=== PATIENT | female | born 1940 | race Caucasian/White ===

== ENCOUNTER → 2016-10-29 | Outpatient (CLI) | payer OTHER | LOC: BHFA 09:15 | PROVIDERS: ATTEND Internal Medicine | DX: I10 Essential (primary) hypertension (principal); R60.9 Edema, unspecified ==

== ENCOUNTER → 2017-09-24 | Outpatient (CLI) | payer OTHER | LOC: FIMAGING 09:12 | PROVIDERS: ATTEND Internal Medicine | DX: Z12.31 Encounter for screening mammogram for malignant neoplasm of breast (principal); Z13.820 Encounter for screening for osteoporosis; M85.89 Other specified disorders of bone density and structure, multiple sites; E03.9 Hypothyroidism, unspecified; E78.2 Mixed hyperlipidemia; I10 Essential (primary) hypertension; Z79.899 Other long term (current) drug therapy | CPT/HCPCS: G0202 ==

== ENCOUNTER 2018-02-16 13:35 | Inpatient (IN) | payer OTHER ==
[2018-02-16] MEDS ORDERED: NS 1,000 ML IV ONE (14:56)
[2018-02-16 15:07] LABS: PLATELET COUNT 225 10^3/uL (150-400)
--- NOTE | 2018-02-16 15:28 | EDPHY ---
H & P Stated Complaint: abd pain Time Seen by Provider: 02/16/18 14:39 - Personal History Current Tetanus/Diphtheria Vaccine: Yes Current Tetanus Diphtheria and Acellular Pertussis (TDAP): Yes Tetanus Vaccine Date: 2011 - Medical/Surgical History Hx Asthma: Yes Hx Chronic Respiratory Disease: No Hx Diabetes: No Hx Cardiac Disease: Yes Hx Renal Disease: Yes Hx Cirrhosis: No Hx Alcoholism: No Hx HIV/AIDS: No Hx Splenectomy or Spleen Trauma: No Other PMH: craniectomy, rib fx, liver laceration, hyperlipidemia,c7 radiculopathy with right arm weakness; neck fusion (Dr. Tran) tendon repair right hand; CVA. CABG - Social History Smoking Status: Never smoked Constitutional: Initial Vital Signs Temperature (C) 37 C 02/16/18 13:42 Heart Rate 68 02/16/18 13:42 Respiratory Rate 16 02/16/18 13:42 Blood Pressure 143/82 H 02/16/18 13:42 O2 Sat (%) 93 02/16/18 13:42 O2 Delivery Mode Room Air Allergies/Adverse Reactions: No Known Allergies Allergy (Verified 02/16/18 13:39) Home Medications: Medication Instructions Recorded Atorvastatin Calcium [Lipitor 40 40 mg PO DAILY #30 tab 03/07/14 mg (*)] Metoprolol Tartrate [Lopressor 25 12.5 mg PO BID #60 tab 03/07/14 mg (*)] Aspirin [Aspirin 325 mg (*)] 325 mg PO DAILY 07/05/16 Bimatoprost 0.01% [Lumigan 0.01% 1 drops EACHEYE HS 07/05/16 (*)] Cyanocobalamin [Vitamin B12 (*)] 1,000 mcg PO DAILY 07/05/16 Levothyroxine [Synthroid 50 mcg 50 mcg PO DAILY06 07/05/16 (*)] [place]-3 Fatty Acids [Fish Oil 1000 1,000 mg PO DAILY 07/05/16 mg (*)] Acetaminophen [Tylenol 325mg (*)] 650 mg PO Q4 PRN #0 tab 07/07/16 Advair 100/50 (*) 02/16/18 Medical Decision Making - Diagnostics Imaging: Discussed imaging studies w/ call box wirer Radiologist, I viewed and interpreted images myself ED Course/Re-evaluation: CHIEF COMPLAINT: Right upper quadrant abdominal pain HISTORY OF PRESENT ILLNESS: 77-year-old female who has had right upper quadrant abdominal pain for the last several days to week. She has also had some nausea without any significant vomiting. The pain has become fairly persistent. She was seen at [facility] for a fungal infection in the [facility] tested her liver function before starting her on an anti fungal medicine. He noticed there was elevation of the liver enzymes and subsequently discuss that with her PCP who sent her here to the emergency department. I have seen those labs and there is elevation of the AST, ALT, alkaline phosphatase, and bilirubin. Patient does endorse persistent right upper quadrant pain and nausea at this time. REVIEW OF SYSTEMS: A 10 point review of systems was performed and is negative with the exception of the elements mentioned in the history of present illness. PHYSICAL EXAM: HR, BP, O2 Sat, RR. Temp noted General Appearance: Alert, well hydrated, appropriate, and non-toxic appearing. Head: Atraumatic without scalp tenderness or obvious injury Eyes: Pupils equal, round, reactive to light and accommodation, EOMI, no trauma , no injection. Ears: Clear bilaterally, no perforation, normal landmarks Nose: Atraumatic, no rhinorrhea, clear. Throat: There is no erythema or exudates, no lesions, normal tonsils, mucus membranes moist. Neck: Supple, 2+ carotid upstroke, nontender, no lymphadenopathy. Respiratory: No retractions, no distress, no wheezes, and no accessory muscle use. Lungs are clear to auscultation bilaterally. Cardiovascular: Regular rate and rhythm, no murmurs, rubs, or gallops. Bilateral carotid, radial, dorsalis pedis, and posterior tibial pulses intact. Good capillary refill all extremities. Gastrointestinal: Positive De Dios sign, otherwise, Abdomen is soft, nontender, non-distended, no masses, no rebound, no guarding, no peritoneal signs. Musculoskeletal: Normal active ROM of all extremities, atraumatic. Neurological: Alert, appropriate, and interactive. The patient has normal DTRs and non-focal cranial nerves, motor, sensory, and cerebellar exam. Skin: No rashes, good turgor, no nodules on palpation. Past medical history: Some problem with her right kidney that she cannot be more specific about Past surgical history: Surgery on that right kidney that she cannot be more specific about Family history: Noncontributory Social history: Retired, does not abuse tobacco drugs or alcohol, and p.o. Since 10:00 a.m. DIAGNOSTICS/PROCEDURES/CRITICAL CARE TIME: Study: Ultrasound of the: Right upper quadrant gallbladder Indication: Elevated liver enzymes and positive De Dios sign Results: US scan of the right upper quadrant was obtained. The results of the study are dilated common bile duct at 9mm (compared to 3mm last year) and thickened gallbladder wall, consistent with acute cholecystitis. The study was read by the radiologist, Dr. Richard. I viewed the images myself on the PACS system. DIFFERENTIAL DIAGNOSIS: The differential diagnosis for the patient's abdominal pain included but was not limited to ovarian cyst, pelvic inflammatory disease, ovarian torsion, urinary tract infection, ectopic , cholecystitis, and appendicitis. MEDICAL DECISION MAKING: This patient has positive De Dios sign and worsening liver enzymes comparing my labs today to her prior labs. She also has elevated alkaline phosphatase and bilirubin I expect her to have a ductal stone. She has a normal lipase. She does not want anything for pain or nausea at this time. She has been NPO since 10:00 a.m. She is receiving intravenous fluids. I will treat her with antibiotics once I confirm her diagnosis. She does not have a white blood cell count currently. She is not septic. The imaging shows dilated common bile duct at 9mm (compared to 3mm last year) and thickened gallbladder wall, consistent with acute cholecystitis. She has been given ceftriaxone and Flagyl. I spoke to Dr. Avila for admission and surgery. She will perform a cholecystectomy and an intraoperative cholangiogram to identify the location of the stone. I informed the patient of the results of her work up and she agrees to this course of action. - Data Points Laboratory Results: Laboratory Results 02/16/18 14:45 02/16/18 14:45 02/16/18 02/16/18 02/16/18 14:45 14:45 14:45 WBC 5.43 10^3/uL 10^3/uL (3.80-9.50) RBC 3.81 10^6/uL L 10^6/uL (4.18-5.33) Hgb 12.5 g/dL L g/dL (12.6-16.3) Hct 36.6 % L % (38.0-47.0) MCV 96.1 fL fL (81.5-99.8) MCH 32.8 pg pg (27.9-34.1) MCHC 34.2 g/dL g/dL (32.4-36.7) RDW 14.1 % % (11.5-15.2) Plt Count 225 10^3/uL 10^3/uL (150-400) MPV 9.6 fL fL (8.7-11.7) Neut % (Auto) 57.4 % % (39.3-74.2) Lymph % (Auto) 27.3 % % (15.0-45.0) [place] % (Auto) 12.7 % % (4.5-13.0) Eos % (Auto) 1.8 % % (0.6-7.6) Baso % (Auto) 0.4 % % (0.3-1.7) Nucleat RBC Rel Count 0.0 % % (0.0-0.2) Absolute Neuts (auto) 3.12 10^3/uL 10^3/uL (1.70-6.50) Absolute Lymphs (auto) 1.48 10^3/uL 10^3/uL (1.00-3.00) Absolute Monos (auto) 0.69 10^3/uL 10^3/uL (0.30-0.80) Absolute Eos (auto) 0.10 10^3/uL 10^3/uL (0.03-0.40) Absolute Basos (auto) 0.02 10^3/uL 10^3/uL (0.02-0.10) Absolute Nucleated RBC 0.00 10^3/uL 10^3/uL (0-0.01) Immature Gran % 0.4 % % (0.0-1.1) Immature Gran # 0.02 10^3/uL 10^3/uL (0.00-0.10) Sodium 144 mEq/L mEq/L (135-145) Potassium 3.8 mEq/L mEq/L (3.5-5.2) Chloride 108 mEq/L mEq/L (97-110) Carbon Dioxide 26 mEq/l mEq/l (22-31) Anion Gap 10 mEq/L mEq/L (8-16) BUN 10 mg/dL mg/dL (7-23) Creatinine 0.7 mg/dL mg/dL (0.6-1.0) Estimated GFR > 60 Glucose 107 mg/dL H mg/dL (70-100) Calcium 9.6 mg/dL mg/dL (8.5-10.4) Total Bilirubin 5.6 mg/dL H mg/dL (0.1-1.4) Conjugated Bilirubin 4.4 mg/dL H mg/dL (0.0-0.5) Unconjugated Bilirubin 1.2 mg/dL H mg/dL (0.0-1.1) AST 312 IU/L H IU/L (14-46) ALT 267 IU/L H IU/L (9-52) Alkaline Phosphatase 585 IU/L H IU/L (38-126) Total Protein 6.7 g/dL g/dL (6.3-8.2) Albumin 3.8 g/dL g/dL (3.5-5.0) Lipase 296 IU/L IU/L (23-300) Urine Color JILL Urine Appearance MODERATELY TURBID Urine pH 5.0 (5.0-7.5) Ur Specific [place] 1.024 (1.002-1.030) Urine Protein 1+ H (NEGATIVE) Urine Ketones TRACE H (NEGATIVE) Urine Blood 1+ H (NEGATIVE) Urine Nitrate NEGATIVE (NEGATIVE) Urine Bilirubin POSITIVE H (NEGATIVE) Urine Urobilinogen 4.0 EU H EU (0.2-1.0) Ur Leukocyte Esterase NEGATIVE (NEGATIVE) Urine RBC 1-3 /hpf /hpf (0-3) Urine WBC 25-50 /hpf H /hpf (0-3) Ur Epithelial Cells TRACE /lpf /lpf (NONE-1+) Calcium Oxalate Crystal PRESENT /hpf /hpf (NONE-1+) Urine Mucus 4+ /lpf H /lpf (NONE-1+) Urine Glucose 1+ H (NEGATIVE) Medications Given: Discontinued Medications Sodium Chloride (Ns) 1,000 mls @ 0 mls/hr IV EDNOW ONE; Wide Open PRN Reason: Protocol Stop: 02/16/18 14:57 Last Admin: 02/16/18 15:07 Dose: 1,000 mls Departure - Departure Disposition: [facility] Inpatient Acute Clinical Impression: Cholecystitis, Choledocholithiasis Condition: Fair Referrals: Magy Collins MD [Primary Care Provider] - As per Instructions Report Scribed for: Jerald Saucedo Report Scribed by: Katarina Olivarez Date of Report: 02/16/18 Time of Report: 16:04
[2018-02-16] MEDS ORDERED: ONDANSETRON 4 MG/2 ML VIAL IVP PRN ×2 (16:01→19:33)
[2018-02-16] MEDS ORDERED: LR 1,000 ML IV ONE (16:48)
--- NOTE | 2018-02-16 17:26 | GHP ---
[f rep st] HISTORY AND PHYSICAL DATE OF ADMISSION: 02/16/2018 CHIEF COMPLAINT: Choledocholithiasis and cholecystitis. HISTORY OF PRESENT ILLNESS: The patient is a 77-year-old woman who has had upper abdominal pain for 5-6 days. She has been seen by her primary care provider, her LFTs were rising, and so she was sent to the emergency room. She has complaints of light-colored stools, dark-colored urine, and jaundice. She has not been eating much recently. She denies fevers, chills, and pruritus. She had an ultras ound performed which showed choledocholithiasis, as well as cholecystitis. PAST MEDICAL HISTORY: Significant for coronary artery disease, history of pneumonia, history of a ce rebral artery aneurysm, hypertension, hyperlipidemia, hypothyroidism, and reactive airways disease. PAST SURGICAL HISTORY: CABG, brain aneurysm x2, neck fusion, right arm surgery, and kidney surgery i n the '70s. ALLERGIES: No known drug allergies. MEDICATIONS: Include atorvastatin, metoprolol, aspirin, Bimatoprost, vitamin B12, levothyroxine, ome ga-3, acetaminophen, and Advair. FAMILY HISTORY: Noncontributory. 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 She denies tobacco, alcoho l, or drug use. She does like to play [employer]. She has raised 7 children. PHYSICAL EXAMINATION: VITAL SIGNS: Reviewed. GENERAL: Pleasant, well-nourished, well-groomed woma n at visit with daughter. HEENT: Normocephalic. No gross hearing deficits. Mucous membranes moist . Pupils equal and round. She does have scleral icterus. LUNGS: Clear to auscultation bilaterally . No increased work of breathing. CARDIAC: Regular rate. No peripheral edema. ABDOMEN: She has a right scar that is subcostal. Her abdomen is soft and minimally tender. Bowel sounds are present. SKIN: Warm and dry. Slight jaundice. NEURO: Grossly intact. RESULTS REVIEWED: Her LFTs are elevated. Her imaging shows a dilated common bile duct and thickened gallbladder wall. IMPRESSION/PLAN: A 77-year-old with acute cholecystitis and choledocholithiasis. I will take her to the operating room for laparoscopic cholecystectomy with intraoperative cholangiogram. The risks an d benefits including, but not limited to, stroke, heart attack, , blood clots, infection, bleedi ng, damage to common bile duct, and need for additional procedures were all discussed. She had her q uestions answered to her satisfaction. She received Rocephin and Flagyl in the ER. I discussed the case with Dr. Saucedo. /[id number]/MODL
--- NOTE | 2018-02-16 17:27 | PDANEPAE ---
ANE History of Present Illness ACUTE CHOLELITHIASIS HERE FOR LAP MACI ANE Past Medical History - Cardiovascular History Hx Hypertension: No Hx Arrhythmias: No Hx Chest Pain: No Hx Coronary Artery / Peripheral Vascular Disease: Yes Hx CHF / Valvular Disease: No Hx Palpitations: No Cardiovascular History Comment: DYSLIPIDEMIA. CAD. CABG X2 FEBRUARY 2014 - Pulmonary History Hx COPD: No Hx Asthma/Reactive Airway Disease: Yes Hx Recent Upper Respiratory Infection: Yes Hx Oxygen in Use at Home: Yes O2 in Use at Home (L/minute): 2 Hx Sleep Apnea: No Pulmonary History Comment: ASTHMA- INHALER BID. OXYGEN AT NIGHT - Neurologic History Hx Cerebrovascular Accident: No Hx Seizures: No Hx Dementia: No - Endocrine History Hx Diabetes: No - Renal History Hx Renal Disorders: Yes Renal History Comment: HX. KIDNEY SURGERY R - Liver History Hx Hepatic Disorders: Yes Hepatic History Comment: LACERATED LIVER - Neurological & Psychiatric Hx Hx Neurological and Psychiatric Disorders: No Neurological / Psychiatric History Comment: ZOLOFT FOR DEPRESSION - Cancer History Hx Cancer: No - Congenital Disorder History Hx Congenital Disorders: No - GI History Hx Gastrointestinal Disorders: No - Other Health History Other Health History: NEG - Chronic Pain History Chronic Pain: No - Surgical History Prior Surgeries: CABG X2 FEBRUARY 2014. CRANIECTOMY - ANEURYSM 1996. RIB FX AND LAC LIVER. KIDNEY SURG 1976 ANE Review of Systems Review of Systems: - Exercise capacity Exercise capacity: >=4 METS METS (RN): 4 METS ANE Patient History - Allergies Allergies/Adverse Reactions: acetaminophen [From [place]] Allergy (Verified 02/16/18 17:15) hydrocodone [From [place]] Allergy (Verified 02/16/18 17:15) - Home Medications Home Medications: Aspirin [Aspirin 325 mg (*)] 325 mg PO DAILY 07/05/16 [Last Taken 1 Day Ago ~] Bimatoprost 0.01% [Lumigan 0.01% (*)] 1 drops EACHEYE HS 07/05/16 [Last Taken 1 Day Ago ~02/15/18] Cyanocobalamin [Vitamin B12 (*)] 1,000 mcg PO DAILY 07/05/16 [Last Taken 1 Day Ago ~02/15/18] Levothyroxine [Synthroid 50 mcg (*)] 50 mcg PO DAILY06 07/05/16 [Last Taken ] [place]-3 Fatty Acids [Fish Oil 1000 mg (*)] 1,000 mg PO DAILY 07/05/16 [Last Taken 1 Day Ago ~02/15/18] Advair 100/50 (*) 02/16/18 [Last Taken 02/16/18] Ibuprofen [Advil] 1 tab PO PRN 02/16/18 [Last Taken 02/16/18] - NPO status NPO Since - Liquids (Date): 02/16/18 NPO Since - Liquids (Time): 12:00 NPO Since - Solids (Date): 02/16/18 NPO Since - Solids (Time): 12:00 (light meal) - Anes Hx Anes Hx: no prior problems - Smoking Hx Smoking Status: Never smoked - Alcohol Use Alcohol Use: None - Family Anes Hx Family Anes Hx: none Family Hx Anesthesia Complications: NEG ANE Labs/Vital Signs - Labs Result Diagrams: 02/16/18 14:45 02/16/18 14:45 - Vital Signs Blood Pressure: 178/72 Heart Rate: 61 Respiratory Rate: 16 O2 Sat (%): 94 Height: 170.18 cm Weight: 86.183 kg ANE Physical Exam - Airway Neck exam: FROM Mallampati Score: Class 2 Mouth exam: normal dental/mouth exam - Pulmonary Pulmonary: no respiratory distress, clear to auscultation - Cardiovascular Cardiovascular: regular rate and rhythym, no murmur, rub, or gallop - ASA Status ASA Status: III ANE Anesthesia Plan Anesthesia Plan: general endotracheal anesthesia Regional Anesthesia: TAP block
[2018-02-16] MEDS ORDERED: IOTHALAMATE MEG (CONRAY) 50 ML VIAL IV ONE (17:29)
[2018-02-16] MEDS ORDERED: BUPIVACAINE 0.5% 30 ML SDV ONE (17:29)
[2018-02-16] MEDS ORDERED: PROPOFOL 200 MG/20 ML VIAL ONE (17:49)
[2018-02-16] MEDS ORDERED: fentaNYL 100 MCG/2 ML INJ ONE ×2 (17:49→19:02)
[2018-02-16] MEDS ORDERED: LIDOCAINE 2% 100 MG/5 ML SYR ONE (17:51)
[2018-02-16] MEDS ORDERED: DEXAMETHASONE 4 MG/ML VIAL ONE (18:24)
[2018-02-16] MEDS ORDERED: ONDANSETRON 4 MG/2 ML VIAL ONE ×2 (18:24→20:03)
[2018-02-16] MEDS ORDERED: fentaNYL 100 MCG/2 ML INJ IVP PRN (19:33)
[2018-02-16] MEDS ORDERED: NALOXONE HCL 0.4 MG/ML INJ IVP PRN (19:33)
[2018-02-16] MEDS ORDERED: ALBUTEROL 3 ML DEYVIAL IH PRN (19:33)
[2018-02-16] MEDS ORDERED: oxyCODONE IR 5 MG TAB PO PRN (19:33)
--- NOTE | 2018-02-16 19:35 | POSTANESTH ---
Post Anesthetic Evaluation Cardiovascular Status: Normal, Stable, Similar to Pre-Op Cond Respiratory Status: Normal, Stable, Similar to Pre-op Cond. Level of Consciousness/Mental Status: Can Participate in Eval, Alert and Oriented Pain Control: Adequate, Prn Tx Ordered Nausea/Vomiting Control: Adequate, Prn Tx Ordered Complications Possibly Related to Anesthesia: None Noted
[2018-02-16] MEDS ORDERED: LABETALOL HCL 5 MG/ML 20 ML MDV ONE (19:37)
--- NOTE | 2018-02-16 19:40 | POSTOPPROG ---
Post Op Note Date of Operation: 02/16/18 Surgeon: Jennifer Avila Anesthesiologist: brandon Anesthesia: GET(General Endotracheal) Pre-op Diagnosis: cholecystitis and choledocolithiasis Post-op Diagnosis: same Indication: 77 yo with ab pain, elevated LFTs Procedure: lap lorie attempt at IOC Findings: could not thread cholangiogram catheter Inf/Abcess present in the surg proc area at time of surgery?: Yes Depth: Organ Space EBL: Minimal Specimen(s): gb
[2018-02-16] MEDS ORDERED: LABETALOL HCL 5 MG/ML 20 ML MDV IVP ONE ×3 (19:44→20:30)
[2018-02-16] MEDS ORDERED: PROMETHAZINE HCL 25 MG/ML INJ ONE (20:18)
[2018-02-16] MEDS ORDERED: amLODIPine BESYLATE 5 MG TAB PO ONE (20:45)
[2018-02-16] MEDS ORDERED: PROMETHAZINE HCL 25 MG/ML INJ IV ONE (20:45)
--- NOTE | 2018-02-16 21:17 | GCON ---
[f rep st] CONSULTATION DATE OF CONSULTATION: 02/16/2018 SUBJECTIVE: The patient is a pleasant 77-year-old female with a history of coronary artery disease w ith bypass, as well as remote intracranial aneurysm status post coiling, presents to the [facility] with nausea, anorexia, abnormal LFTs, and she is now in the PACU following a laparoscopic cholecys tectomy. She was unable to have an intraoperative cholangiogram given persistent intraoperative hype rtension. I am now asked by Dr. Jennifer Avila to speak with the patient. When I arrived in the PACU, the patient's blood pressure was elevated to 190/70. It had been as high as 226/75. The patient denies chest pain or headache. She has some nausea. She has not had any fe gerry, chills, abdominal pain. Her pain is otherwise well-controlled. She denies history of heart failure symptoms as an outpatient. She lives independently. REVIEW OF SYSTEMS: Complete 10-point review of systems conducted. Negative, except as noted in the HPI. PAST MEDICAL HISTORY: 1. History of 2-vessel bypass. 2. Brain aneurysm, status post craniotomy. 3. Cervical fusion, right hand surgery, hypertension, choledocholithiasis. ALLERGIES: Hydrocodone and Tylenol. HOME MEDICATIONS: Metoprolol 12.5 twice daily, fish oil, levothyroxine, B12, Lumigan eye drops, ator vastatin, aspirin. She also takes Tylenol. SOCIAL HISTORY: No tobacco. No alcohol. Lives in [facility]. PHYSICAL EXAMINATION: VITAL SIGNS: Temperature 36.4, blood pressure 178/72, now 179/69, pulse 50s, breathing 16 times a minute, 94% on room air. GENERAL: Lying flat. HEENT: Sclerae anicteric. Sun pharynx clear. Mucous membranes moist. NECK: Supple without lymphadenopathy or JVD. LUNGS: Clear to auscultation bilaterally. HEART: S1, S2. There is a systolic murmur heard throughout the preco rdium. ABDOMEN: Soft. It is appropriately tender. LOWER EXTREMITIES: Without edema. Calves are nontender. SKIN: Without rash. NEUROLOGICAL: Exam is nonfocal. LABORATORY DATA: White count 5.4, hematocrit 36.6, platelets are 225,000. Sodium 144, potassium 3.8 , chloride 108, bicarb 26, BUN 10, creatinine 0.7, glucose 107, bilirubin is 5.6, predominantly conju gated. AST is 312, ALT is 267, alkaline phosphatase 585. UA is positive at 25-50 white cells. I discussed the case with Dr. Jennifer Avila. ASSESSMENT/PLAN: This is a 77-year-old female with choledocholithiasis and postoperative hypertensio n. 1. Hypertension. This is likely postoperative hypertension. They have been giving her labetalol in the emergency department. I have written for her to give 5 of Norvasc now, as well as an additional 10. We can follow her blood pressure. I will also write her for metoprolol as her medications have not yet been reconciled. She has no headache, no chest symptoms. We do not need to worry about pot ential anginal symptoms. She has done very well since her bypass. 2. Coronary artery disease. Continue her aspirin, atorvastatin and beta-arik when her medication s have been reconciled, and an aspirin is appropriate from a postoperative standpoint. 3. Prophylaxis. Recommend pharmacologic venous thromboembolism prophylaxis when felt appropriate by Surgery. Would recommend aspirin first. 4. Choledocholithiasis. The patient remains on antibiotics. It is not clear if operative removal w as successful, of the stone. I will defer this to Dr. Avila. 5. Pyuria. The patient has pyuria. This will be covered with ceftriaxone and metronidazole that arie is on. Thank you for this consultation. [facility] Medicine will follow. /[id number]/MODL
[2018-02-16] MEDS ORDERED: ENALAPRILAT DIHYDRATE 1.25 MG/ML VIAL ONE (21:25)
[2018-02-16] MEDS ORDERED: ENALAPRILAT DIHYDRATE 1.25 MG/ML VIAL IVP ONE (21:30)
[2018-02-16] MEDS: D5W 1/2 NS W/ 20 KCl/L 1,000 ML IV SCH (22:10)
[2018-02-16] MEDS: METOPROLOL TARTRATE 25 MG TAB PO SCH (22:10)
[2018-02-17 04:53] LABS: PLATELET COUNT 207 10^3/uL (150-400)
[2018-02-17] MEDS: METOPROLOL TARTRATE 25 MG TAB PO SCH ×2 (07:26→20:37)
[2018-02-17] MEDS: LEVOTHYROXINE 50 MCG TAB PO SCH (07:31)
[2018-02-17] MEDS: D5W 1/2 NS W/ 20 KCl/L 1,000 ML IV SCH (07:35)
--- NOTE | 2018-02-17 08:32 | SOAPPROG ---
SOAP Progress Note Assessment/Plan: Assessment/Plan: 77yo F POD#1 s/p lap lorie. Unable to perform IOC d/t intraop hypertension HTN - managed by hospitalists Pain significantly improved this am. Bilirubin trending down Will hold off on ERCP for now. Recheck labs tomorrow am. If pain returns/worsens , will consult GI today Advance to clear liquids S: "starving". pain controlled. No flatus yet. No nausea. O: Sitting upright in chair, NAD No increased WOB Hypoactive BS but present, softly distended. Incisions CDI Objective: Vital Signs Temp Pulse Resp BP Pulse Ox 36.6 C 66 18 183/68 H 93 02/17/18 06:42 02/17/18 06:42 02/17/18 06:42 02/17/18 06:42 02/17/18 06:42 Laboratory Results 02/17/18 04:35 02/16/18 02/17/18 02/18/18 05:59 05:59 05:59 Intake Total 4000 Output Total 10 Balance 3990 ICD10 Worksheet Patient Problems: Problems Problem Status Onset Cholecystitis Acute Choledocholithiasis Acute Ankle fracture, left Acute CAD (coronary artery disease) Acute Coronary arteriosclerosis in [place] artery Acute Dislocation of ankle, left, closed Acute HTN (hypertension) Acute Hypoxemia Acute Pneumonia Acute
[2018-02-17] MEDS: FLUTICASONE/SALMETER 250/50MCG DISKUS IH SCH ×2 (08:40→21:42)
[2018-02-17] MEDS ORDERED: CYANO/VITAMIN B12 1000 MCG TAB PO SCH (09:00)
[2018-02-17] MEDS: traMADol 50 MG TAB PO PRN ×2 (11:52→18:27)
--- NOTE | 2018-02-17 11:52 | PDMN ---
Medical Necessity Medical necessity: est los>2mn for cholecystitis and choledocholithiasis w/ elevated liver fx and dilated CBD; admit for lap lorie, ( no IOC r/t intraop htn ) monitor labs, GI consult if pain returns or worsens, hospitalist consult for HTN management; comorbid CAD, HTN, HLD, RAD, hx cerebral aneurysm; per order and H&P 02/16/18
--- NOTE | 2018-02-17 12:56 | ASMTCMCOM ---
CM Note CM Note Notes: Reviewed chart. Pt is s/p john melo. Met w/her to discuss dc plan. Pt lives at home w/friend, Juan. She reports she has very good family/friend support. No CM needs anticipated. Date Signed: 02/17/2018 12:56 PM Electronically Signed By:Tahmnia Gibson RN
--- NOTE | 2018-02-17 15:22 | HOSPPROG ---
Hospitalist Progress Note Assessment/Plan: 77 yo F with hx of CAD and HTN presenting with abdominal pain found to be 2/2 cholelithiasis/choledocholithiasis # cholelithiasis/choledocholithiasis: s/p lap lorie but unable to perform IOC due to HTN. SEems likely that the stone has passed on its own given improvement in pain and decrease in LFTs. Plan is to monitor overnight and if pain remains improved, LFTs continue to trend down suspect that no further intervention is needed. # HTN: patient with chronic htn and significantly elevated BP in the post operative setting likely related to same. Currently maintaining safe BP on home doses of metoprolol. # CAD: continued on asa, statin, BB # pyuria: asymptomatic, will not treat or w/u further at this time # hypothyroid: continue lt4 # dispo: IP , likely ready for dc in am if labs continue to improve Patient new to my care. Old records reviewed and summarized as above. Subjective: no significant overnight events, patient currently feeling better, eating/drinking/walking Objective: Vital Signs Temp Pulse Resp BP Pulse Ox 97.9 C H 58 L 16 137/48 H 95 02/17/18 10:48 02/17/18 10:48 02/17/18 10:48 02/17/18 10:48 02/17/18 10:48 Laboratory Results 02/17/18 04:35 02/16/18 02/17/18 02/18/18 05:59 05:59 05:59 Intake Total 4000 Output Total 10 Balance 3990 awake alert nad anicteric op clear rrr no mrg cta b soft nt nd no cce warm dry well perfused oriented appropriate ICD10 Worksheet Patient Problems: Problems Problem Status Onset Coronary arteriosclerosis in [place] artery Acute Hypoxemia Acute Pneumonia Acute Ankle fracture, left Acute Dislocation of ankle, left, closed Acute CAD (coronary artery disease) Acute HTN (hypertension) Acute Cholecystitis Acute Choledocholithiasis Acute
[2018-02-17] MEDS ORDERED: BIMATOPROST 0.01% 2.5 ML OPHT.BTL EACHEYE SCH (21:00)
[2018-02-17] MEDS ORDERED: ASPIRIN 325 MG TAB PO SCH (21:00)
[2018-02-17] MEDS ORDERED: ATORVASTATIN CALCIUM 40 MG TAB PO SCH (21:00)
[2018-02-18] MEDS: LEVOTHYROXINE 50 MCG TAB PO SCH (04:38)
[2018-02-18 07:30] VITALS: BP 149/56
--- NOTE | 2018-02-18 07:50 | SOAPPROG ---
SOAP Progress Note Assessment/Plan: Assessment: POD # 2 s/p lap lorie with attempt at IOC for choledocolithiasis Labs much improved today Can DC home [place] [facility]STANED[facility] instruction sheet Repeat labs in 1 week S: Feeling well O: Abdomen soft. Incisions cdi CTAB RRR Sitting up in bed playing [id number] Plan: 02/18/18 07:50 Objective: Vital Signs Temp Pulse Resp BP Pulse Ox 36.8 C 60 16 149/56 H 87 L 02/18/18 07:24 02/18/18 07:24 02/18/18 07:24 02/18/18 07:24 02/18/18 07:24 Laboratory Results 02/17/18 04:35 02/17/18 02/18/18 02/19/18 05:59 05:59 05:59 Intake Total 4000 200 Output Total 10 Balance 3990 200 ICD10 Worksheet Patient Problems: Problems Problem Status Onset Cholecystitis Acute Choledocholithiasis Acute Ankle fracture, left Acute CAD (coronary artery disease) Acute Coronary arteriosclerosis in [place] artery Acute Dislocation of ankle, left, closed Acute HTN (hypertension) Acute Hypoxemia Acute Pneumonia Acute
[2018-02-18] MEDS: METOPROLOL TARTRATE 25 MG TAB PO SCH (08:53)
[2018-02-18] MEDS: FLUTICASONE/SALMETER 250/50MCG DISKUS IH SCH (08:54)
[2018-02-18] MEDS: traMADol 50 MG TAB PO PRN (09:12)
--- NOTE | 2018-02-24 12:59 | GOP ---
[f rep st] OPERATIVE REPORT DATE OF OPERATION: 02/16/2018 SURGEON: Jennifer Avila MD ANESTHESIA: General. ANESTHESIOLOGIST: Dr. Agapito Mallory. PREOPERATIVE DIAGNOSIS: Cholecystitis and choledocholithiasis. POSTOPERATIVE DIAGNOSIS: Cholecystitis and choledocholithiasis. PROCEDURE PERFORMED: Laparoscopic cholecystectomy and attempted intraoperative cholangiogram. FINDINGS: Could not thread cholangiogram catheter. SPECIMENS: Gallbladder. ESTIMATED BLOOD LOSS: Minimal. INDICATIONS: The patient is a 77-year-old woman who has had elevated LFTs. She presents with increa sing abdominal pain and jaundice. She presents for cholecystectomy. DESCRIPTION OF PROCEDURE: The patient was brought into the operating room, placed supine on the tabl e, and general anesthesia was administered. Her abdomen was prepped and draped in the usual sterile fashion. I infiltrated all sites with 0.5% Marcaine prior to making incisions. I elevated her umbil icus. I made a small derrick and inserted the Veress needle. It passed the hang-drop test. Her abdome n insufflated easily to a pressure of 15 mmHg. I placed a 5 mm trocar with a camera at this site. T here were no injuries from Veress needle placement. Under direct vision, I placed a 10 mm subxiphoid trocar and two 5 mm trocars along the right costal margin. Her gallbladder was thickened. I was ab le to grasp it and dissect some omentum away from the gallbladder wall. I retracted it laterally and was able to expose the triangle of [place]. I skeletonized the cystic artery and the cystic duct. I singly clipped the cystic artery toward the gallbladder and doubly clipped it distally and transected it. I singly clipped the cystic duct toward the gallbladder. I made a small incision on the cystic duct, and I did multiple attempts to thread a cholangiogram catheter. I could get it partially in t he cystic duct, but I could not thread it toward the common bile duct. I was able to protect the com mon bile duct and protect it from harm. Since I was not able to thread the cholangiogram catheter af ter multiple attempts, I aborted this portion of the procedure. I placed an Endoloop around the stum p of the cystic duct. I finished transecting the cystic duct. There was minimal spillage of bile. I then removed the gallbladder from the gallbladder fossa with electrocautery. I placed it in an End oCatch bag and retrieved it via the 10 mm trocar. It felt thickened in the EndoCatch bag. I examine d her liver bed for hemostasis, which was achieved with electrocautery. Suction was performed for a small amount of heme that was spilled. The ports were removed under direct vision. The abdomen allo wed to desufflate. The 10 mm trocar site was closed with 0 Vicryl, skin closed with 4-0 Monocryl, De rmabond applied. She was awakened in the operating room, extubated, transferred to PACU in stable co ndition. I spoke with her family after the case. /[id number]/MODL
--- NOTE | 2018-03-03 12:30 | GDS ---
[f rep st] DISCHARGE SUMMARY ADMITTING DIAGNOSIS: Choledocholithiasis with cholecystitis. SECONDARY DIAGNOSES: Coronary artery disease, hypertension, hyperlipidemia, hypothyroidism, reactive airway disease. REASON FOR ADMISSION: The patient is a 77-year-old woman who presented to the emergency room complai ranjana of abdominal pain. Ultrasound performed showed choledocholithiasis with cholecystitis. She was taken to the operating room by Dr. Jennifer Avila on 02/16/2018, for laparoscopic cholecystectomy with intraoperative cholangiogram. However, the IOC was unable to be performed due to extreme uncontrolle d hypertension in the operating room. Part of the procedure was aborted. On postoperative day #1, h er abdominal pain had significantly improved. All of her labs were improving, specifically including her bilirubin. It was elected not to proceed with an ERCP at that time. By postoperative day #2, h er pain was well controlled. She was tolerating a regular diet, ambulating independently, and was re giovanni for discharge home. 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 Please see report for more details. CONDITION: Being discharged home in stable condition, pain controlled, tolerating a regular diet, am bulating independently. DISCHARGE INSTRUCTIONS AND FOLLOWUP: She will follow up with Dr. Jennifer Avila in 1 week. She will ge t repeat labs prior to her appointment. She understands to call with any worsening symptoms, questio ns or concerns. Low-fat diet for 2 weeks. Avoid heavy lifting, pushing, or pulling for 2 weeks. Arabella parker. /[id number]/MODL
== END 2018-02-18 09:40 | disposition home or self-care (01) | DRG 419 ==
LOC: F3E 21:47
PROVIDERS: ADMIT Surgery; ATTEND Surgery
PROC: 0FT44ZZ Resection of Gallbladder, Percutaneous Endoscopic Approach (ICD-10-PCS; principal; 2018-02-16 15:45)
DX: C23 Malignant neoplasm of gallbladder (principal); I10 Essential (primary) hypertension; I25.10 Atherosclerotic heart disease of native coronary artery without angina pectoris; Z95.1 Presence of aortocoronary bypass graft; E03.9 Hypothyroidism, unspecified; E78.5 Hyperlipidemia, unspecified; Z87.01 Personal history of pneumonia (recurrent); Z98.1 Arthrodesis status
CPT/HCPCS: 86705-90; 86709-90; G0472; J0696; J1100; J2001; J2270; J2405; J2550; J2704; J3010; Q9961

== ENCOUNTER 2018-02-27 08:30 | Inpatient (IN) | payer OTHER ==
--- NOTE | 2018-02-27 08:46 | EDPHY ---
H & P Stated Complaint: abd pain Time Seen by Provider: 02/27/18 08:34 HPI/ROS: CHIEF COMPLAINT: Acute abdominal pain HISTORY OF PRESENT ILLNESS: The patient presents to the ED with acute abdominal pain in the right upper quadrant and mid quadrant. The patient is approximately 1 week status post cholecystectomy. As a result of the operation she was diagnosed with cholangiocarcinoma. The patient had done well postoperatively until she developed acute right upper quadrant pain at 3:30 a.m. In the morning with associated nausea. She currently rates her pain as an 8/10. Other abdominal surgeries include a history of some type of surgery on her right kidney in the 70s. REVIEW OF SYSTEMS: A comprehensive 10 point review of systems is otherwise negative aside from elements mentioned in the history of present illness. Source: Patient Exam Limitations: No limitations - Personal History Tetanus Vaccine Date: 2011 - Medical/Surgical History Hx Asthma: Yes Hx Chronic Respiratory Disease: No Hx Diabetes: No Hx Cardiac Disease: Yes Hx Renal Disease: Yes Hx Cirrhosis: No Hx Alcoholism: No Hx HIV/AIDS: No Hx Splenectomy or Spleen Trauma: No Other PMH: craniectomy, rib fx, liver laceration, hyperlipidemia,c7 radiculopathy with right arm weakness; neck fusion (Dr. Tran) tendon repair right hand; CVA. CABG - Social History Smoking Status: Never smoked - Physical Exam Exam: General Appearance: Alert, no distress Eyes: Pupils equal and round no pallor or injection ENT, Mouth: Mucous membranes moist Respiratory: There are no retractions, lungs are clear to auscultation Cardiovascular: Regular rate and rhythm Gastrointestinal: Abdomen is soft and nontender, no masses, bowel sounds normal Neurological: 5/5 strength all 4 extremities Skin: Warm and dry, no rashes Musculoskeletal: Neck is supple nontender Extremities: symmetrical, full range of motion Constitutional: Initial Vital Signs Temperature (C) 37.5 C 02/27/18 08:41 Heart Rate 67 02/27/18 08:41 Respiratory Rate 20 02/27/18 08:41 Blood Pressure 155/67 H 02/27/18 08:41 O2 Sat (%) 97 02/27/18 08:41 O2 Delivery Mode Nasal Cannula O2 (L/minute) 1 Allergies/Adverse Reactions: acetaminophen [From [place]] Allergy (Verified 02/16/18 17:15) hydrocodone [From [place]] Allergy (Verified 02/16/18 17:15) Home Medications: Medication Instructions Recorded Metoprolol Tartrate [Lopressor 25 12.5 mg PO BID #60 tab 03/07/14 mg (*)] Aspirin [Aspirin 325 mg (*)] 325 mg PO HS 07/05/16 Bimatoprost 0.01% [Lumigan 0.01% 1 drops EACHEYE HS 07/05/16 (*)] Levothyroxine [Synthroid 50 mcg 50 mcg PO DAILY06 07/05/16 (*)] [place]-3 Fatty Acids [Fish Oil 1000 1,000 mg PO DAILY 07/05/16 mg (*)] Atorvastatin Calcium [Lipitor 40 40 mg PO HS 02/16/18 mg (*)] Cyanocobalamin [Vitamin B12 (*)] 1,000 mcg PO Q2D@09 02/16/18 Fluticasone/Salmeter 250/50Mcg 1 puffs IH BID 02/16/18 [Advair 250/50 (*)] traMADol [Ultram 50 mg (*)] 50 mg PO Q6HRS PRN #20 tab 02/18/18 Medical Decision Making - Diagnostics Imaging Results: Imaging Impressions Abdomen CT 02/27/18 09:14 Impression: 1. Postcholecystectomy with mild-moderate biliary ductal dilatation to the level of the common bile duct pancreatic segment where there is evidence of trace intraluminal hemorrhage. This could be further investigated by endoscopy. 2. Small complex fluid collection in the gallbladder fossa. This may represent a hepatic subcapsular hematoma or alternatively a postoperative biloma. Endoscopic cholangiography would be more sensitive for the detection of bile leak if clinically suspected. Findings were communicated by telephone with Dr. Ty Douglas at 02/27/2018 10:13 ED Course/Re-evaluation: The patient presents to the ED with abdominal pain following cholecystectomy. The patient is noted to have elevated liver function tests. She was taken for CT scan of the abdomen pelvis which does demonstrated dilated common bile duct. I discussed the case with the patient's general surgeon Dr. Avila. She has requested the patient be admitted to the hospital for ERCP. I have ordered IV Unasyn. I requested consultation with Gastroenterology at 10:40 a.m. I spoke with Dr. Brown who will evaluate the patient. The patient will be admitted to Hospital Medicine by Dr. Bullard. The patient did received IV fentanyl and morphine for pain control in the emergency department. Differential Diagnosis: Differential diagnosis considered - Data Points Laboratory Results: Laboratory Results 02/27/18 08:43 02/27/18 08:43 02/27/18 02/27/18 08:43 08:43 WBC 10.24 10^3/uL H 10^3/uL (3.80-9.50) RBC 3.71 10^6/uL L 10^6/uL (4.18-5.33) Hgb 12.2 g/dL L g/dL (12.6-16.3) Hct 35.9 % L % (38.0-47.0) MCV 96.8 fL fL (81.5-99.8) MCH 32.9 pg pg (27.9-34.1) MCHC 34.0 g/dL g/dL (32.4-36.7) RDW 13.2 % % (11.5-15.2) Plt Count 375 10^3/uL 10^3/uL (150-400) MPV 9.5 fL fL (8.7-11.7) Neut % (Auto) 74.9 % H % (39.3-74.2) Lymph % (Auto) 12.9 % L % (15.0-45.0) [place] % (Auto) 6.5 % % (4.5-13.0) Eos % (Auto) 5.0 % % (0.6-7.6) Baso % (Auto) 0.4 % % (0.3-1.7) Nucleat RBC Rel Count 0.0 % % (0.0-0.2) Absolute Neuts (auto) 7.67 10^3/uL H 10^3/uL (1.70-6.50) Absolute Lymphs (auto) 1.32 10^3/uL 10^3/uL (1.00-3.00) Absolute Monos (auto) 0.67 10^3/uL 10^3/uL (0.30-0.80) Absolute Eos (auto) 0.51 10^3/uL H 10^3/uL (0.03-0.40) Absolute Basos (auto) 0.04 10^3/uL 10^3/uL (0.02-0.10) Absolute Nucleated RBC 0.00 10^3/uL 10^3/uL (0-0.01) Immature Gran % 0.3 % % (0.0-1.1) Immature Gran # 0.03 10^3/uL 10^3/uL (0.00-0.10) Sodium 138 mEq/L mEq/L (135-145) Potassium 4.7 mEq/L mEq/L (3.5-5.2) Chloride 103 mEq/L mEq/L (97-110) Carbon Dioxide 23 mEq/l mEq/l (22-31) Anion Gap 12 mEq/L mEq/L (8-16) BUN 18 mg/dL mg/dL (7-23) Creatinine 0.7 mg/dL mg/dL (0.6-1.0) Estimated GFR > 60 Glucose 95 mg/dL mg/dL (70-100) Calcium 8.9 mg/dL mg/dL (8.5-10.4) Total Bilirubin 2.2 mg/dL H mg/dL (0.1-1.4) Conjugated Bilirubin 1.6 mg/dL H mg/dL (0.0-0.5) Unconjugated Bilirubin 0.6 mg/dL mg/dL (0.0-1.1) AST 355 IU/L H IU/L (14-46) ALT 393 IU/L H IU/L (9-52) Alkaline Phosphatase 1047 IU/L H IU/L (38-126) Total Protein 6.7 g/dL g/dL (6.3-8.2) Albumin 3.6 g/dL g/dL (3.5-5.0) Lipase 251 IU/L IU/L (23-300) Medications Given: Discontinued Medications Fentanyl (Sublimaze) 100 mcg IVP EDNOW ONE Stop: 02/27/18 08:54 Last Admin: 02/27/18 08:55 Dose: 100 mcg Morphine Sulfate (Morphine) 4 mg IVP EDNOW ONE Stop: 02/27/18 09:31 Last Admin: 02/27/18 09:31 Dose: 4 mg Departure - Departure Referrals: Magy Collins MD [Primary Care Provider] - As per Instructions
[2018-02-27] MEDS ORDERED: fentaNYL 100 MCG/2 ML INJ IVP ONE (08:53)
[2018-02-27] MEDS ORDERED: fentaNYL 100 MCG/2 ML INJ ONE (08:55)
[2018-02-27 08:58] LABS: PLATELET COUNT 375 10^3/uL (150-400)
[2018-02-27] MEDS ORDERED: IOPAMIDOL (ISOVUE-300) 100 ML BTL ONE (09:27)
[2018-02-27] MEDS ORDERED: AMPICILLIN/SULBACTAM 3 GM in NS 100 ML IV ONE (10:39)
[2018-02-27] MEDS ORDERED: HYDROmorphone HCL/NS 0.5 MG/ML SYR IVP PRN (12:28)
[2018-02-27] MEDS ORDERED: ONDANSETRON DISINTEGRATING 4 MG TAB PO PRN (12:28)
[2018-02-27] MEDS ORDERED: ACETAMINOPHEN 325 MG TAB PO PRN (12:28)
[2018-02-27] MEDS ORDERED: NS 1,000 ML IV SCH (12:30)
[2018-02-27] MEDS ORDERED: oxyCODONE IR 5 MG TAB PO PRN (13:00)
--- NOTE | 2018-02-27 13:02 | ASMTCMCOM ---
CM Note CM Note Notes: Pt presented to the ED for RUQ abd pain; pt recently had a cholecystectomy about 1 wk ago (pt d/c'd 02/17/18 Home w/friends/family/independent) and at that time was also diagnosed w/cholangiocarcinoma. Pt admitted for severe RUQ pain, cholangitis and ERCP to be done. Pt is usually independent. Pt's daughter, Ivelisse, lives in [place]. Pt's PCP is Dr Magy Collins. Exact DC needs unknown. CM to follow. Date Signed: 02/27/2018 01:01 PM Electronically Signed By:Irina Mnotenegro RN
--- NOTE | 2018-02-27 13:03 | GCON ---
[f rep st] CONSULTATION CHIEF COMPLAINT: Abnormal liver function tests and abnormal imaging of the bile duct. HISTORY OF PRESENT ILLNESS: I have been asked to see the patient in consultation from Dr. Avila for abnormal liver function tests, question choledocholithiasis versus tumor. The patient is a very pleasant 77-year-old woman who was well until several weeks ago. She went to her primary care physician for oral antifungal medication. Her primary care physician ordered liver function tests prior to prescribing. She was noted to have elevated LFTs with an elevated bilirubin at that time. Her total bilirubin was 4.0, with an AST of 243 and an ALT of 249, with an alkaline phosphatase of 533. She had been having some "gut ache" for 4-5 days. It is mostly right-sided and right abdominal. She had no fevers or chills. She presented to the emergency department. She underwent evaluation and had an ultrasound done at that time. Ultrasound did show dilated common bile duct with equivocal sludge downstream near the pancreas. The intrahepatic pancreatic portion of the common bile duct sludge obscured by bowel gas. There was a thickened walled irregular gallbladder. She underwent a laparoscopic cholecystectomy with an attempt at IOC. IOC was unable to be obtained. The pathology of the gallbladder showed invasive cholangiocarcinoma moderately differentiated involving the gallbladder. The tumor invades through the gallbladder muscularis into the subserosal adipose tissue. There was also perineural invasion with no definite lymphovascular space invasion. The cystic duct margin was negative for tumor. She had persistently abnormal liver function tests postop. However, she was asymptomatic with abdominal pain, and she had gradual improvement of her liver function tests. However, on discharge, her total bilirubin was 2.0 with an AST of 199 and an ALT 254. She was discharged home, was well. On the day of admission, she had significant abdominal pain that was severe. She called an ambulance to bring her to the hospital. She had no nausea or vomiting. No fevers or chills. She has been noticing darkening of her urine over the last several days. Repeat liver function tests on the day of admission revealed a total bilirubin of 2.2 with an AST of 355, ALT of 393, with an alkaline phosphatase of 1047. PT was normal at 12.9, with an INR of 1.01 and a PTT of 28.5. A CT scan was performed in the emergency department. CT scan showed findings of post cholecystectomy with mild to moderate biliary ductal dilatation at the level of the common bile duct at the pancreatic segment where there was evidence of trace intraluminal hemorrhage. There was a small complex fluid collection in the gallbladder fossa that may represent hepatic subcapsular hematoma or postop biloma. The patient was given pain medicine in the emergency department with improvement of her discomfort. Asked to see patient for further evaluation. PAST MEDICAL HISTORY: Remarkable for previous cerebral aneurysm, status post clipping in 1996; coronary artery bypass surgery, two-vessel; fractured ankle; tendon transfer in her arm; cervical neck surgery. MEDICATIONS: Prior to admission include metoprolol, Lipitor, Lumigan, Advair, Nexium, aspirin, multivitamins, and [place]. ALLERGIES: No known drug allergies but is sensitive to narcotics, including [place]. FAMILY HISTORY: Remarkable for heart disease, otherwise negative as it pertains to chief complaint. SOCIAL HISTORY: Nonsmoker and nondrinker. 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 REVIEW OF SYSTEMS: Negative for 10 systems, other than mentioned in HPI. PHYSICAL EXAM: VITAL SIGNS: 169/60, heart rate of 67, respiratory rate 14, 95 % on room air, 37.2 temperature. GENERAL: Very pleasant woman in no acute distress. HEENT: Normocephalic, atraumatic. EOMI. No scleral icterus. NECK : No thyromegaly. No cervical adenopathy. LUNGS: Clear. CARDIAC: Normal S1 , with 2/6 systolic ejection murmur. ABDOMEN: Remarkable for punctate scars from previous laparoscopic cholecystectomy. Soft, positive bowel sounds, tender to palpation. EXTREMITIES: Without clubbing, cyanosis, edema. NEURO: Nonfocal. PSYCH: Alert and oriented x3 with normal affect. SKIN: Warm, dry, and intact. LABORATORY DATA: Hemoglobin of 12.2, hematocrit 35.9. PT 12.9, INR of 1.01. PTT of 28.5. Serum chemistries: Serum sodium 138, potassium 4.7, chloride 103 , CO2 of 23, BUN of 18, creatinine of 0.7. LFTs: Total bilirubin of 2.2. AST 355, ALT of 393. IMPRESSION: A 77-year-old woman with a previous finding of cholelithiasis and cholangiocarcinoma. Patient with a clinical presentation consistent with biliary duct obstruction. Question of common bile duct stone versus tumor. Would recommend MRCP. However, patient with previous clipping for cerebral aneurysm, and MRI is not possible. Will proceed with ERCP for diagnostic and therapeutic purposes for sphincterotomy, stone extraction possible and/or stent placement. Antibiotics prior to ERCP. We will follow with you. /[id number]/MODL MTDD
--- NOTE | 2018-02-27 13:34 | GHP ---
[f rep st] HISTORY AND PHYSICAL DATE OF ADMISSION: 02/27/2018 CHIEF COMPLAINT: Abdominal pain. HISTORY OF PRESENT ILLNESS: This is a 77-year-old female, who presents with acute abdominal pain. S he had a cholecystectomy which was performed on 02/16/2018. That was done by Dr. Avila. Intraoperat karl cholangiogram was not performed due to difficulty with threading the catheter wire, as well as si gnificant hypertension intraoperatively. Pathology from the gallbladder showed invasive cholangiocar cinoma with perineural invasion. Since her discharge, she has done relatively well, though she has n ot had significant appetite. She has had ongoing abdominal pain including occasional sharp pains in the right upper quadrant. She presented to the ER this morning, given sudden onset at 3:30 am this m orning of severe, 10/10, sharp right upper abdominal pain. She was unable to really do anything else due to the pain. It has been relieved with morphine she received in the emergency department. She has had gradually darkening urine. Some weight loss which seemed to predate her cholecystectomy. PAST MEDICAL/SURGICAL HISTORY: 1. Coronary artery disease status post CABG. 2. Asthma, on inhalers. 3. Brain aneurysm status post clipping. 4. Cervical fusion. 5. Right hand surgery. 6. Hypertension. 7. Cholelithiasis. 8. Chronic respiratory failure, on 2 L of nocturnal oxygen. 9. Left ankle surgery. MEDICATIONS: Please see medication reconciliation. ALLERGIES: Hydrocodone. FAMILY HISTORY: No cancer. SOCIAL HISTORY: She lives with her life partner. REVIEW OF SYSTEMS: 10-point review of systems is conducted and is negative except per HPI. PHYSICAL EXAM: VITAL SIGNS: Blood pressure 169/60, heart rate 67, respiration rate 14, saturating a t 95% on 2 L. T-max is 37.5. GENERAL: The patient is a pleasant female who is lying in bed, accomp anied by her 2 daughters. Resting comfortably. HEENT: Normocephalic, atraumatic. CARDIOVASCULAR: Regular rate and rhythm. She has a split S2. She has a faint systolic murmur. PULMONARY: Breathi ng comfortably. From the anterior, there are no adventitious breath sounds. ABDOMEN: Her previous laparoscopic incisions to be healing well. She is extremely tender to palpation in the right upper a nd lower quadrant. SKIN: No rash. : No Gatn. NEUROLOGIC: Alert and oriented x3. She is movi ng all extremities. PSYCHIATRIC: Normal mood and affect. LABS: White count is 10.2, hemoglobin 12.2. Basic metabolic panel is normal. Total bilirubin is 2. 2. AST is 355, ALT 393. Alkaline phosphatase is 1047. DATA: 1. I discussed this with Dr. Brown. ERCP will be performed later today. 2. I reviewed her chart. 3. I reviewed her abdomen CT scan which shows fluid collection in the gallbladder fossa, mild-to-mod erate dilation to the level of the common bile duct in the pancreatic segment. IMPRESSION AND PLAN: 1. Concern for common bile duct obstruction, maybe stone versus cholangiocarcinoma. She is currentl y not septic. Agree with antibiotics as given by the emergency department. Dr. Brown will decide, based on ERCP findings, whether she needs ongoing antibiotics. ERCP will be performed later today. Will recheck her liver function tests tomorrow. 2. New diagnosis of cholangiocarcinoma. I have placed a call to Dr. Avila to find out what the plan s are for this. She will likely get an oncologic consultation while she is an inpatient. 3. Pain. This is quite significant. Will give her intravenous morphine, as well as oxycodone to ta andre after her procedure as needed. 4. Coronary artery disease status post coronary artery bypass graft. I will hold her aspirin for e time being. Will like to restart this as soon as possible. She is on a statin. Will continue her beta arik. 5. Brain aneurysm status post clip. This prevents an MRCP. Nothing else to do about this at this p oint. 6. Chronic respiratory failure, on nocturnal oxygen. Will watch her and provide oxygen as needed as an inpatient. 7. Anemia. This is somewhat chronic and stable. 8. Code status. She is full code. She would not like to be kept alive in a prolonged manner. She would not want to be kept alive at all if she has a brain . 9. Venous thromboembolism risk. This is high. However, with ERCP planned, I will hold this for krisankit joaquina. /[id number]/MODL
--- NOTE | 2018-02-27 16:10 | PDMN ---
Medical Necessity Medical necessity: est los>2mn for common bile duct obstruction, stone vs cholangiocarcinoma, and significant pain; admit for IV abx, ERCP per GI, likely onc consult, and IV pain med; comorbid CAD, chronic resp failure on nocturnal O2 , chronic anemia, hx brain aneurysm s/p clip; per order and H&P 02/27/18
[2018-02-27] MEDS ORDERED: GLUCAGON HCL 1 MG VIAL ONE (16:35)
[2018-02-27] MEDS ORDERED: IOTHALAMATE MEG (CONRAY) 50 ML VIAL IV ONE (16:36)
[2018-02-27] MEDS ORDERED: LIDOCAINE 2% 5 ML SDV ONE (16:55)
[2018-02-27] MEDS ORDERED: PROPOFOL 200 MG/20 ML VIAL ONE (16:55)
[2018-02-27] MEDS ORDERED: ALBUTEROL 3 ML DEYVIAL IH PRN (16:58)
[2018-02-27] MEDS ORDERED: ONDANSETRON 4 MG/2 ML VIAL IVP PRN (16:58)
[2018-02-27] MEDS ORDERED: ACETAMINOPHEN 500 MG TAB PO PRN (16:58)
[2018-02-27] MEDS ORDERED: fentaNYL 100 MCG/2 ML INJ IVP PRN (16:58)
[2018-02-27] MEDS ORDERED: NALOXONE HCL 0.4 MG/ML INJ IVP PRN ×2 (16:58→18:14)
[2018-02-27] MEDS ORDERED: DEXAMETHASONE 4 MG/ML VIAL ONE (17:11)
[2018-02-27] MEDS ORDERED: ROCURONIUM 50 MG/5 ML VIAL ONE (17:11)
[2018-02-27] MEDS ORDERED: ONDANSETRON 4 MG/2 ML VIAL ONE (17:12)
--- NOTE | 2018-02-27 17:24 | PDANEPAE ---
ANE History of Present Illness ERCP ANE Past Medical History - Cardiovascular History Hx Hypertension: No Hx Arrhythmias: No Hx Chest Pain: No Hx Coronary Artery / Peripheral Vascular Disease: Yes Hx CHF / Valvular Disease: No Hx Palpitations: No Cardiovascular History Comment: DYSLIPIDEMIA. CAD. CABG X2 FEBRUARY 2014 - Pulmonary History Hx COPD: No Hx Asthma/Reactive Airway Disease: Yes Hx Recent Upper Respiratory Infection: Yes Hx Oxygen in Use at Home: Yes O2 in Use at Home (L/minute): 2 Hx Sleep Apnea: No Sleep Apnea Screening Result - Last Documented: Negative Pulmonary History Comment: ASTHMA- INHALER BID. OXYGEN AT NIGHT - Neurologic History Hx Cerebrovascular Accident: No Hx Seizures: No Hx Dementia: No - Endocrine History Hx Diabetes: No - Renal History Hx Renal Disorders: Yes Renal History Comment: HX. KIDNEY SURGERY R - Liver History Hx Hepatic Disorders: Yes Hepatic History Comment: LACERATED LIVER - Neurological & Psychiatric Hx Hx Neurological and Psychiatric Disorders: No Neurological / Psychiatric History Comment: ZOLOFT FOR DEPRESSION - Cancer History Hx Cancer: No - Congenital Disorder History Hx Congenital Disorders: No - GI History Hx Gastrointestinal Disorders: No - Other Health History Other Health History: NEG - Chronic Pain History Chronic Pain: No - Surgical History Prior Surgeries: CABG X2 FEBRUARY 2014. CRANIECTOMY - ANEURYSM 1996. RIB FX AND LAC LIVER. KIDNEY SURG 1976 ANE Review of Systems Review of Systems: - Exercise capacity Exercise capacity: >=4 METS ANE Patient History - Allergies Allergies/Adverse Reactions: hydrocodone [From [place]] Allergy (Intermediate, Verified 02/27/18 11:03) Other-Enter Comments - Home Medications Home Medications: Aspirin [Aspirin 325 mg (*)] 325 mg PO HS 07/05/16 [Last Taken 02/26/18] Bimatoprost 0.01% [Lumigan 0.01% (*)] 1 drops EACHEYE HS 07/05/16 [Last Taken ] Levothyroxine [Synthroid 50 mcg (*)] 50 mcg PO DAILY06 07/05/16 [Last Taken 05/10] [place]-3 Fatty Acids [Fish Oil 1000 mg (*)] 1,000 mg PO DAILY 07/05/16 [Last Taken 02/26/18] Atorvastatin Calcium [Lipitor 40 mg (*)] 40 mg PO HS 02/16/18 [Last Taken ] Cyanocobalamin [Vitamin B12 (*)] 1,000 mcg PO Q2D@09 02/16/18 [Last Taken ] Fluticasone/Salmeter 250/50Mcg [Advair 250/50 (*)] 1 puffs IH BID 02/16/18 [ Last Taken 02/26/18 21:00] C/E/Zn/Cu/OM3/DHA/EPA/LUT/ZEAX [Preservision Areds 2 Softgel] 1 each PO BIDMEAL 02/27/18 [Last Taken 02/26/18 18:00] Omeprazole 40 mg PO DAILY 02/27/18 [Last Taken 02/27/18] - NPO status NPO Since - Liquids (Date): 02/27/18 NPO Since - Liquids (Time): 12:00 NPO Since - Solids (Date): 02/27/18 NPO Since - Solids (Time): 00:00 - Smoking Hx Smoking Status: Never smoked - Family Anes Hx Family Hx Anesthesia Complications: NEG ANE Labs/Vital Signs - Labs Result Diagrams: 02/27/18 08:43 02/27/18 08:43 - Vital Signs Blood Pressure: 160/60 Heart Rate: 67 Respiratory Rate: 16 O2 Sat (%): 95 Height: 170.18 cm Weight: 83.915 kg ANE Physical Exam - Airway Neck exam: FROM Mallampati Score: Class 2 - Pulmonary Pulmonary: clear to auscultation - Cardiovascular Cardiovascular: regular rate and rhythym - ASA Status ASA Status: III ANE Anesthesia Plan Anesthesia Plan: general endotracheal anesthesia
--- NOTE | 2018-02-27 17:46 | GCON ---
[f rep st] CONSULTATION ONCOLOGY CONSULTATION REQUESTING PHYSICIAN: Jennifer Avila MD REASON FOR CONSULTATION: Gallbladder cancer. HISTORY OF PRESENTING ILLNESS: The patient is a 77-year-old woman who had a cholecystectomy 02/17/2018, after presenting with upper abdominal pain for several days and abnormal LFTs. Preoperative imaging included abdominal ultrasound, which demonstrated dilated common bile duct with equivocal sludge and a thick-walled, irregular gallbladder. Laparoscopic cholecystectomy was performed. There were no unusual intraoperative findings, but the gallbladder felt thickened. Intraoperative cholangiogram could not be performed. 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 Perineural invasion present, no definite lymphovascular invasion. The cystic duct margin was negative. Pathologic stage pT2a, pNx. She reports recovering well postoperatively, until developing sudden onset of upper abdominal pain beginning at about 4 a.m. this morning. She came to the emergency room. Laboratory studies demonstrated total bilirubin 2.2 (had decreased from 5.6, 02/16/2018 to 2.0 02/18/2018), alkaline phosphatase 1047 ( up from 372 02/18/2018), AST 355 (up from 199), ALT 393 (up from 254). CT abdomen and pelvis today demonstrated a subhepatic fluid collection measuring 3.8 x 2.2 cm with [id number] intrahepatic and extrahepatic biliary dilation. Hyperattenuating material in the pancreatic portion of the common bile duct suggestive of hemobilia. Postoperative inflammatory stranding noted along the chani hepatis. Trace perihepatic fluid. No comment on adenopathy. She was seen by Dr. Brown and ERCP is scheduled for this afternoon. She has had pain relief with morphine. She is hungry and looking forward to eating later. Two of her daughters, her sister, a great niece, and her partner are present. PAST MEDICAL HISTORY: 1. Coronary artery disease, status post bypass. 2. Aneurysm. 3. On nocturnal oxygen, 2 L. 4. History of brain aneurysm, status post clipping. 5. Hypothyroidism. PAST SURGICAL HISTORY: 1. Cholecystectomy, 02/16/2018, as above. 2. Coronary artery bypass. 3. Cervical spine fusion. 4. Left ankle surgery. 5. Some type of kidney surgery in the 1970s. OUTPATIENT MEDICATIONS: Atorvastatin, metoprolol, aspirin, B12, levothyroxine, Advair. FAMILY HISTORY: She has 2 sisters and 1 brother. No family history of malignancy. She has a biological son and daughter. SOCIAL HISTORY: She is . She has a long time partner, Juan. They have been together for 27 years. She is a nonsmoker, does not drink alcohol. She has raised 7 children, her 2 biologic children and 5 step-children. She works part-time for [employer], providing assistance for patients with dementia. REVIEW OF SYSTEMS: CONSTITUTIONAL: No fevers, chills, or unintentional weight loss. VISION: No changes. CARDIOVASCULAR: No exertional chest pain, palpitations, PND, orthopnea, or lower extremity edema. RESPIRATORY: No cough , dyspnea, pleurisy. GI: Per HPI. No changes in bowel habits. NEUROLOGIC: No headache, numbness, weakness. HEMATOLOGIC: No unusual bruising or bleeding. PHYSICAL EXAM: VITAL SIGNS: Blood pressure 169/90, pulse 67, 95% on 2 L, afebrile. GENERAL: Very pleasant woman who is a little sleepy after getting more IV morphine. She is comfortable. She is oriented and answers questions appropriately. HEENT: No obvious scleral icterus. CARDIOVASCULAR: No pretibial edema. RESPIRATORY: Breathing comfortably. ABDOMEN: She is very sensitive over the right upper quadrant. LABORATORY DATA: Per HPI. Creatinine 0.7. WBC 10.2 (75% neutrophils, 13% lymphocytes), hemoglobin 12.2, platelets 375,000. RADIOLOGIC STUDIES: Per HPI. IMPRESSION: 1. At least Stage IIa (pT2a pNX), moderately differentiated gallbladder carcinoma, incidental pathology finding. 2. Postoperative intra and extrahepatic biliary obstruction. The patient will have endoscopic retrograde cholangiopancreatography this afternoon. The etiologies of the biliary obstruction are most likely a common bile duct stone, bleeding/clot, and less likely tumor. In terms of the gallbladder carcinoma, she has not had what we would recommend as an oncologic surgery, given the incidental pathologic finding. Generally, cholecystectomy would be performed as well as partial hepatic resection and lymph node sampling. We discussed eventual consultation with a liver surgeon, either at [facility] or [place] (Dr. Guillen). Dr. Avila has spoken with the liver group at [facility]. We briefly discussed the potential for adjuvant therapy following further resection. Imaging today demonstrates no clear evidence of additional disease. We will be reviewing her case at multidisciplinary cancer conference tomorrow. We will perform tumor markers and chest CT while she is here. We discussed her and family's questions. /[id number]/MODL MTDD
--- NOTE | 2018-02-27 18:14 | POSTANESTH ---
Post Anesthetic Evaluation Cardiovascular Status: Normal, Stable Respiratory Status: Similar to Pre-op Cond. Level of Consciousness/Mental Status: Mildly Sleepy, Arousable Pain Control: Adequate, Prn Tx Ordered Nausea/Vomiting Control: Adequate, Prn Tx Ordered Complications Possibly Related to Anesthesia: None Noted
--- NOTE | 2018-02-27 18:14 | GIREPORT ---
[facility] Surgical Services - Endoscopy Department Patient Name: Edita Hathaway Procedure Date: 02/27/2018 4:51 PM Patient Type: Inpatient Attending MD/ ER Physician: Andrzej Brown MD Procedure: ERCP Indications: Abnormal abdominal CT, Biliary dilation on Computed Tomogram Scan, Bili ana dilation on Ultrasound, Abnormal liver function test, Adenocarcinoma in GB at Cholecystectomy Providers: Andrzej Brown MD Medicines: Sedation Required Anesthesia Staff Assistance Complications: No immediate complications. Description of Procedure: After obtaining informed consent, the scope was passed under direct vis ion. Throughout the procedure, the patient's blood pressure, pulse, and oxyg en saturations were monitored continuously. The Duodenoscope was introduce d through the mouth, and advanced to the duodenum and used to inject cont rast into the bile duct. Findings: The major papilla was normal. A long 0.035 inch Soft Jagwire was passed into the biliary tree. The short-nosed traction sphincterotome was passed ov er the guidewire and the bile duct was then deeply cannulated. Contrast wa s injected. I personally interpreted the bile duct images. Image quality was excellent. Contrast extended to the entire biliary tree. The common navya e duct contained a single diffuse stenosis 30 - 40 mm in length. The enti re biliary tree was diffusely dilated, secondary to a stricture. The bilia ry sphincterotomy was extended to a total of 10 mm in length with a tracti on (standard) sphincterotome using ERBE electrocautery. The sphincterotomy oozed blood. Occlusion cholangiogram with 12 - 15 mmg balloon. Cells fo r cytology were obtained by brushing. One 10 Fr by 6 cm covered metal marie nt was placed into the common bile duct. Bile flowed through the stent. Th e stent was in good position. Estimated Blood Loss: Estimated blood loss: none. Post Op Diagnosis: - The major papilla appeared normal. - A diffuse biliary stricture was found. The stricture was malignant appearing. - The entire biliary tree was dilated, secondary to a stricture. - A biliary sphincterotomy was performed. - One covered metal stent was placed into the common bile duct. Recommendation: - Observe patient's clinical course. - Clear liquid diet. - Check liver enzymes (AST, ALT, alkaline phosphatase, bilirubin) in e morning. - Perform an upper endoscopic ultrasound (UEUS) this Tuesday. - Zosyn (piperacillin tazobactam) 3.375 gm IV q 6 hr. - Thank you for allowing me to participate in the care of your patient. Andrzej Brown MD Andrzej Brown MD 02/27/2018 6:14:26 PM This report has been signed electronicallyAndrzej Brown MD Number of Addenda: 0 Note Initiated On: 02/27/2018 4:51 PM [email or web address]
[2018-02-27] MEDS ORDERED: LABETALOL HCL 5 MG/ML 20 ML MDV ONE (18:24)
[2018-02-27] MEDS: LABETALOL HCL 5 MG/ML 20 ML MDV IVP PRN ×3 (18:25→19:26)
[2018-02-27] MEDS: FLUTICASONE/SALMETER 250/50MCG DISKUS IH SCH (20:47)
[2018-02-27] MEDS: PIPERACILLIN/TAZO 3.375 GM/DEX 50 ML IV SCH (21:12)
[2018-02-27] MEDS: ATORVASTATIN CALCIUM 40 MG TAB PO SCH (21:13)
[2018-02-27] MEDS: METOPROLOL TARTRATE 25 MG TAB PO SCH (21:13)
[2018-02-27] MEDS: BIMATOPROST 0.01% 2.5 ML OPHT.BTL EACHEYE SCH (21:13)
[2018-02-27] MEDS: PRESERVISION AREDS2 FORMULA EYE VIT 1 EACH PO SCH (21:18)
[2018-02-28] MEDS: PIPERACILLIN/TAZO 3.375 GM/DEX 50 ML IV SCH ×3 (03:08→12:25)
[2018-02-28] MEDS: traMADol 50 MG TAB PO PRN ×2 (04:30→12:25)
[2018-02-28] MEDS: ONDANSETRON 4 MG/2 ML VIAL IVP PRN ×3 (04:31→23:50)
[2018-02-28 05:58] LABS: PLATELET COUNT 333 10^3/uL (150-400)
[2018-02-28] MEDS: LEVOTHYROXINE 50 MCG TAB PO SCH (07:54)
[2018-02-28] MEDS ORDERED: IOPAMIDOL (ISOVUE-300) 100 ML BTL ONE (08:29)
[2018-02-28] MEDS: PRESERVISION AREDS2 FORMULA EYE VIT 1 EACH PO SCH ×2 (08:31→17:37)
[2018-02-28] MEDS: OMEGA-3 FATTY ACIDS 1,000 MG CAP PO SCH (08:31)
[2018-02-28] MEDS: METOPROLOL TARTRATE 25 MG TAB PO SCH ×2 (08:31→21:10)
[2018-02-28] MEDS: FLUTICASONE/SALMETER 250/50MCG DISKUS IH SCH ×2 (08:38→21:22)
[2018-02-28] MEDS ORDERED: NON-FORMULARY NEW DRUG (Omeprazole [Omeprazole] 40 MG) PO SCH (09:00)
--- NOTE | 2018-02-28 11:10 | GCON ---
[f rep st] CONSULTATION DATE OF CONSULTATION: 02/27/2018 CHIEF COMPLAINT: Gallbladder cancer. HISTORY OF PRESENT ILLNESS: The patient is a 77-year-old woman who I met 1st on February 16, 2018 when she presented to the emergency room with elevated LFTs and thickened gallbladder with dilated common bile duct. She had pain. I took her to the operating room for laparoscopic cholecystectomy with attempt at intraoperative cholangiogram. I was unable to thread the cholangiogram catheter. Over the next 2 days, her LFTs decreased, she felt well and was discharged home. I saw her in my office on February 24, 2018, at which time she was doing well. Unfortunately, she developed severe abdominal pain, had some emesis and returned to the emergency room. A CT scan showed intrahepatic biliary ductal dilatation and a dilated common bile duct. She had an ERCP performed yesterday by Dr. Hackett, which showed a stricture that looked malignant. A metal stent was placed. A sphincterotomy was performed. The CT scan of her abdomen and pelvis did not show lymphadenopathy. Since admission, she is feeling better. PAST MEDICAL HISTORY: Includes coronary artery disease, history of cerebral artery aneurysm, hypertension, hyperlipidemia, hypothyroidism, reactive airway disease. PAST SURGICAL HISTORY: Includes CABG, brain surgery x2, neck fusion, right arm surgery and kidney surgery in the 70s. ALLERGIES: No known drug allergies. MEDICATIONS: Includes atorvastatin, metoprolol, aspirin, Bimatoprost, vitamin B12, levothyroxine, omega-3, acetaminophen, Advair. FAMILY HISTORY: No family history of bile duct cancers. 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 She is very close with her family. She denies tobacco, alcohol, or drug use. She has raised 7 children. REVIEW OF SYSTEMS: Appropriately tearful, some fatigue, some abdominal pain. No current nausea, vomiting. Otherwise, 10-point review of systems is negative. PHYSICAL EXAMINATION: VITAL SIGNS: 36.8, 62, 189/59, 18, 91% on room air. GENERAL: Pleasant, well-nourished, well-groomed woman lying on bed with family at bedside. HEENT: Normocephalic. No gross hearing deficits. Mucous membranes moist. Pupils equal and round. No scleral icterus. LUNGS: Clear to auscultation bilaterally. No increased work of breathing. CARDIAC: Regular rate. No peripheral edema. ABDOMEN: Incisions abdomen incisions clean , dry, and intact. She is soft. She is nontender to palpation. PSYCH: Appropriately tearful. NEURO: Grossly intact. RESULTS REVIEWED: I personally reviewed the results of her CT scan of her abdomen and agree with the findings of a dilated common bile duct. There is a fluid collection by the gallbladder fossa. Her LFTs today are slightly decreased from admission. Her CEA is 0.74 and CA19.9 is pending. IMPRESSION AND PLAN: The patient is a 77-year-old woman with gallbladder cancer and a biliary stricture. It is possible that she has 2 different etiologies, are that these are both related. I spent time discussing the prognosis with her and her family, which unfortunately is not good. We discussed that she may be a candidate for surgery. I have discussed the case with Dr. Agapito Dobbs at [facility] as well as with at the [facility]. I do not think that neoadjuvant chemotherapy at this time is appropriate. I do think having an EUS would give more information showing if the pancreas is involved and if there is any lymphadenopathy that is more subtle. I have also discussed the case with Dr. Ruiz. Her case was discussed at Tumor Board this morning, which is a multi disciplinary Cancer Care Conference and the staging workup including the CT of the chest, abdomen, and pelvis have now been completed. The CT scan of the abdomen and pelvis was reviewed. I have also discussed the case with her primary care provider, Dr. Magy Collins as well as with Medical Oncology and the hospitalist. /[id number]/MODL MTDD
--- NOTE | 2018-02-28 12:08 | SOAPPROG ---
SOAP Progress Note Assessment/Plan: Assessment: s/p ERCP feeling much better. LFT's improved. S/p biliary metal covered stent. Also s/p brushings (pending) Plan: 1. EUS as out patient 2. Patient to followup with Dr. Agapito Dobbs for evaluation for surgery 3. D/C IV antibiotics and switch to PO antibiotics x 10 days. Levaquin 500 mg PO daily x 10 days. 3. Will sign off, please call with questions 02/28/18 12:09 Subjective: CC: Biliary obstruction,, jaundice, abnormal LFTs and abdominal pain Patient feels much better, no significant abdominal pain, tolerating PO Objective: Vital Signs Temp Pulse Resp BP Pulse Ox 36.8 C 73 17 180/60 H 91 L 02/28/18 11:14 02/28/18 11:14 02/28/18 11:14 02/28/18 11:14 02/28/18 11:14 Laboratory Results 02/28/18 04:25 02/28/18 04:25 02/27/18 02/28/18 03/01/18 05:59 05:59 05:59 Intake Total 850 751 Output Total 600 Balance 250 751 Generic Name Dose Route Start Last Admin Trade Name Freq PRN Reason Stop Dose Admin Acetaminophen 650 mg 02/27/18 12:28 02/28/18 08:32 Tylenol PO 08/26/18 12:27 650 mg Q4HRS PRN Administration Pain, Mild/Fever, Can Take PO Atorvastatin Calcium 40 mg 02/27/18 21:00 02/27/18 21:13 Lipitor PO 08/26/18 20:59 40 mg HS AYDEN Administration Bimatoprost 1 drops 02/27/18 21:00 02/27/18 21:13 Lumigan 0.01% EACHEYE 08/26/18 20:59 1 drop HS AYDEN Administration Sodium Chloride 1,000 mls @ 75 mls/hr 02/27/18 12:30 02/27/18 21:18 Ns IV 08/26/18 12:29 1,000 mls CONT AYDEN Administration Piperacillin/Tazobactam/Dextrose 50 mls @ 100 mls/hr 02/27/18 18:30 02/28/18 07:54 Zosyn 3.375 Gm (Premix) IV 03/29/18 18:29 50 mls Q6HRS AYDEN Administration Protocol Levothyroxine Sodium 50 mcg 02/28/18 06:00 02/28/18 07:54 Synthroid PO 08/27/18 05:59 50 mcg DAILY06 AYDEN Administration Metoprolol Tartrate 12.5 mg 02/27/18 21:00 02/28/18 08:31 Lopressor PO 08/26/18 20:59 12.5 mg BID AYDEN Administration Miscellaneous Medication 40 mg 02/28/18 09:00 02/28/18 09:53 Omeprazole [Omeprazole] PO 08/27/18 08:59 Not Given DAILY AYDEN Morphine Sulfate 2 - 4 mg 02/27/18 12:59 02/27/18 14:54 Morphine IVP 03/09/18 12:58 4 mg Q1HR PRN Administration Pain, Severe Unable to Take PO Multivitamins/Minerals 1 each 02/27/18 18:00 02/28/18 08:31 Preservision Areds2 Formula PO 08/26/18 17:59 1 each BIDMEAL AYDEN Administration Ffkxy-9-[id number] Ethyl Esters 1,000 mg 02/28/18 09:00 02/28/18 08:31 Fish Oil PO 08/27/18 08:59 1,000 mg DAILY AYDEN Administration Ondansetron HCl 4 mg 02/27/18 12:28 02/28/18 04:31 Zofran IVP 08/26/18 12:27 4 mg Q4HRS PRN Administration Nausea/Vomiting, Can't Take PO Ondansetron HCl 4 mg 02/27/18 12:28 Zofran Odt PO 08/26/18 12:27 Q4HRS PRN Nausea/Vomiting, Use 1st Oxycodone HCl 5 - 10 mg 02/27/18 13:00 Oxycodone Ir PO 03/09/18 12:59 Q4HRS PRN Pain, Severe Able to Take PO Fluticasone/Salmeterol 1 puffs 02/27/18 21:00 02/28/18 08:38 Advair IH 08/26/18 20:59 1 puffs BID AYDEN Administration Tramadol HCl 50 mg 02/27/18 13:00 02/28/18 04:30 Ultram PO 08/26/18 12:59 50 mg Q6HRS PRN Administration Pain, Moderate Able to Take PO Vitamin B Complex 1,000 mcg 03/01/18 09:00 Vitamin B12 PO 08/28/18 08:59 Q2D@09 AYDEN Discontinued Medications Generic Name Dose Route Start Last Admin Trade Name Arturo PRN Reason Stop Dose Admin Acetaminophen 500 mg 02/27/18 16:58 Tylenol PO 02/27/18 17:58 Q6HRS PRN PACU, Pain Mild Albuterol 3 ml 02/27/18 16:58 Proventil Neb IH 02/27/18 17:58 Q10M PRN PACU, Wheezing Dexamethasone Confirm 02/27/18 17:11 Decadron Injection Administered 02/27/18 17:12 Dose 4 mg .ROUTE .STK-MED ONE Fentanyl 100 mcg 02/27/18 08:53 02/27/18 08:55 Sublimaze IVP 02/27/18 08:54 100 mcg EDNOW ONE Administration Fentanyl Confirm 02/27/18 08:55 Sublimaze Administered 02/27/18 08:56 Dose 100 mcg .ROUTE .STK-MED ONE Fentanyl 25 - 100 mcg 02/27/18 16:58 Sublimaze IVP 02/27/18 17:58 Q5M PRN PACU, IMMEDIATE Pain control Glucagon Confirm 02/27/18 16:35 Glucagon Administered 02/27/18 16:36 Dose 1 mg .ROUTE .STK-MED ONE Hydromorphone/Sodium Chloride 0.2 - 0.4 mg 02/27/18 12:28 Hydromorphone IVP 03/09/18 12:27 Q4HRS PRN Pain, Severe Unable to Take PO Ampicillin Sodium/Sulbactam 100 mls @ 200 mls/hr 02/27/18 10:39 02/27/18 11: 21 Sodium 3 gm/ Sodium Chloride IV 02/27/18 11:08 100 mls EDNOW ONE Administration Protocol Iopamidol Confirm 02/27/18 09:27 Isovue-300 Administered 02/27/18 09:28 Dose 100 ml .ROUTE .STK-MED ONE Iopamidol Confirm 02/28/18 08:29 Isovue-300 Administered 02/28/18 08:30 Dose 100 ml .ROUTE .STK-MED ONE Iothalamate Meglumine Confirm 02/27/18 16:36 [place] Administered 02/27/18 16:37 Dose 50 ml IV .STK-MED ONE Labetalol HCl 5 - 10 mg 02/27/18 18:14 02/27/18 19:26 Trandate Injection IVP 02/27/18 19:14 5 mg Q10M PRN Administration PACU, Hypertension Labetalol HCl Confirm 02/27/18 18:24 Trandate Injection Administered 02/27/18 18:25 Dose 100 mg .ROUTE .STK-MED ONE Lidocaine HCl Confirm 02/27/18 16:55 Xylocaine-Mpf 2% Vial Administered 02/27/18 16:56 Dose 5 ml .ROUTE .STK-MED ONE Morphine Sulfate Confirm 02/27/18 09:28 Morphine Administered 02/27/18 09:29 Dose 4 mg .ROUTE .STK-MED ONE Morphine Sulfate 4 mg 02/27/18 09:30 02/27/18 09:31 Morphine IVP 02/27/18 09:31 4 mg EDNOW ONE Administration Naloxone HCl 0.1 mg 02/27/18 16:58 Narcan IVP 02/27/18 17:58 Q2M PRN PACU Resp Rate <10/min Naloxone HCl 0.1 mg 02/27/18 18:14 Narcan IVP 02/27/18 19:14 Q2M PRN PACU Resp Rate <10/min Ondansetron HCl 2 - 4 mg 02/27/18 16:58 Zofran IVP 02/27/18 17:58 Q10M PRN PACU, Nausea/Vomiting Ondansetron HCl Confirm 02/27/18 17:12 Zofran Administered 02/27/18 17:13 Dose 4 mg .ROUTE .STK-MED ONE Propofol Confirm 02/27/18 16:55 Diprivan Administered 02/27/18 16:56 Dose 200 mg .ROUTE .STK-MED ONE Rocuronium [place] Confirm 02/27/18 17:11 Zemuron Administered 02/27/18 17:12 Dose 50 mg .ROUTE .STK-MED ONE Physical Exam - Physical Exam General Appearance: alert Respiratory: lungs clear, normal breath sounds Cardiac/Chest: regular rate, rhythm Abdomen: normal bowel sounds, non-tender, soft Skin: normal color, warm/dry Neuro/Psych: no motor/sensory deficits, alert, normal mood/affect, oriented x 3 ICD10 Worksheet Patient Problems: Problems Problem Status Onset Ankle fracture, left Acute CAD (coronary artery disease) Acute Cholecystitis Acute Choledocholithiasis Acute Coronary arteriosclerosis in [place] artery Acute Dislocation of ankle, left, closed Acute HTN (hypertension) Acute Hypoxemia Acute Pneumonia Acute
--- NOTE | 2018-02-28 14:04 | HOSPPROG ---
Hospitalist Progress Note Assessment/Plan: # cholangiocarcinoma - discovered after cholecystectomy - plan for outpatient EUS with Dr Sara mosqueda evaluate # common bile duct stricture s/p stent placement - GI recs levaquin 500mg po daily for 10 days # RUQ pain - still severe today, should be improving if this was d/t biliary obstruction - reassess before dc tomorrow # CAD s/p CABG - cont to hold asa - cont metop/lipitor # brain aneurysm s/p clip - prevents MRI # chronic resp failure - nocturnal O2 # anemia - stable Subjective: abd pain reported as better; belching today Objective: Vital Signs Temp Pulse Resp BP Pulse Ox 36.8 C 73 17 180/60 H 91 L 02/28/18 11:14 02/28/18 11:14 02/28/18 11:14 02/28/18 11:14 02/28/18 11:14 Laboratory Results 02/28/18 04:25 02/28/18 04:25 02/27/18 02/28/18 03/01/18 05:59 05:59 05:59 Intake Total 850 751 Output Total 600 Balance [address] chest reviewed op note from Dr Brown reviewed - Physical Exam Constitutional: no apparent distress, appears nourished Cardiovascular: regular rate and rhythym, no murmur, rub, or gallop Respiratory: no respiratory distress, no rales or rhonchi, clear to auscultation Gastrointestinal: no palpable masses, guarding, other (severe RUQ pain with minimal palpation), No ascites ICD10 Worksheet Patient Problems: Problems Problem Status Onset Coronary arteriosclerosis in [place] artery Acute Hypoxemia Acute Pneumonia Acute Ankle fracture, left Acute Dislocation of ankle, left, closed Acute CAD (coronary artery disease) Acute HTN (hypertension) Acute Cholecystitis Acute Choledocholithiasis Acute
[2018-02-28] MEDS ORDERED: PROMETHAZINE HCL 25 MG/ML INJ IVP ONE (14:48)
--- NOTE | 2018-02-28 16:03 | ASMTCMCOM ---
CM Note CM Note Notes: Patient had ERCP yesterday, which showed a stricture that looked malignant. A stent was placed and sphincterotomy performed. She is to have an upper endoscopic ultrasound Saturday 03/03. PT evaluated her today, and she does not have any needs. Jennifer Werner, joy loader also met with patient and her daughter Ivelisse to discuss support and resources. Case Management will assist if needed. Date Signed: 02/28/2018 04:03 PM Electronically Signed By:Lary Taylor RN
[2018-02-28] MEDS: PANTOPRAZOLE SODIUM 40 MG TAB PO SCH (17:37)
--- NOTE | 2018-02-28 19:26 | SOAPPROG ---
SOAP Progress Note Assessment/Plan: Assessment: 1. Gallbladder cancer, s/p cholecystectomy-recent EUS with malignant appearing stricture in CBD, brushings pending. No eviedence of distant metastasis, chest Ct negative. 2. CBD stricture-metal stent placed, on empiric antibiotics with levoquin. LFT' s improving, as is appetite Plan: 1. Case discussed at tumor board this morning. will be referred to hepatic surgeon [facility] at [facility] or [facility]. 2. Outpatient EUS 3. Follow up with Dr. Ivelisse burger as outpatient. 02/28/18 19:25 02/28/18 19:26 Subjective: feels hungry Objective: Vital Signs Temp Pulse Resp BP Pulse Ox 36.8 C 63 16 165/57 H 91 L 02/28/18 11:14 02/28/18 15:08 02/28/18 15:08 02/28/18 15:08 02/28/18 11:14 Laboratory Results 02/28/18 04:25 02/28/18 04:25 02/27/18 02/28/18 03/01/18 05:59 05:59 05:59 Intake Total 850 1151 Output Total 600 Balance 250 1151 Physical Exam - Physical Exam General Appearance: alert Respiratory: lungs clear Abdomen: soft ICD10 Worksheet Patient Problems: Problems Problem Status Onset Ankle fracture, left Acute CAD (coronary artery disease) Acute Cholecystitis Acute Choledocholithiasis Acute Coronary arteriosclerosis in [place] artery Acute Dislocation of ankle, left, closed Acute HTN (hypertension) Acute Hypoxemia Acute Pneumonia Acute
[2018-02-28] MEDS ORDERED: LACTULOSE 20 GM/30 ML UDCUP PO PRN (20:19)
[2018-02-28] MEDS ORDERED: BISACODYL 10 MG SUPP PR PRN (20:19)
[2018-02-28] MEDS ORDERED: MAGNESIUM HYDROXIDE 30 ML UDCUP PO PRN (20:19)
[2018-02-28] MEDS ORDERED: POLYETHYLENE GLYCOL 3350 17 GM PKT PO PRN (20:19)
[2018-02-28] MEDS: SENNOSIDES/DOCUSATE SODIUM TAB PO SCH (21:11)
[2018-02-28] MEDS: ATORVASTATIN CALCIUM 40 MG TAB PO SCH (21:11)
[2018-02-28] MEDS: BIMATOPROST 0.01% 2.5 ML OPHT.BTL EACHEYE SCH (21:12)
[2018-03-01] MEDS: ONDANSETRON 4 MG/2 ML VIAL IVP PRN ×3 (04:06→18:04)
[2018-03-01] MEDS: LEVOTHYROXINE 50 MCG TAB PO SCH (04:07)
[2018-03-01] MEDS: PRESERVISION AREDS2 FORMULA EYE VIT 1 EACH PO SCH ×2 (07:51→18:04)
[2018-03-01] MEDS: traMADol 50 MG TAB PO PRN (07:51)
[2018-03-01] MEDS: PANTOPRAZOLE SODIUM 40 MG TAB PO SCH (07:51)
[2018-03-01] MEDS: SENNOSIDES/DOCUSATE SODIUM TAB PO SCH ×2 (09:26→21:14)
[2018-03-01] MEDS: CYANO/VITAMIN B12 1000 MCG TAB PO SCH (09:26)
[2018-03-01] MEDS: OMEGA-3 FATTY ACIDS 1,000 MG CAP PO SCH (09:26)
[2018-03-01] MEDS: METOPROLOL TARTRATE 25 MG TAB PO SCH ×2 (09:26→21:13)
--- NOTE | 2018-03-01 09:37 | SOAPPROG ---
SOAP Progress Note Assessment/Plan: Assessment/Plan: 77yo F s/p lap lorie, path with cholangiocarcinoma. Admitted with bile duct obstruction s/p ERCP and stent. No choledocholithiasis, stenosis appeared malignant. Labs improved Pain and distension increased today - check stat AXR Bowel protocol EUS planned for tomorrow with Dr. Ruiz. Appreciate hospitalist management of comorbidities, oncology input. S: feeling worse today - pain and distension. O: Objective: Vital Signs Temp Pulse Resp BP Pulse Ox 36.9 C 70 17 182/70 H 93 03/01/18 08:00 03/01/18 09:26 03/01/18 08:00 03/01/18 09:26 03/01/18 08:00 Laboratory Results 02/28/18 04:25 03/01/18 05:00 02/28/18 03/01/18 03/02/18 05:59 05:59 05:59 Intake Total 850 1401 Output Total 600 Balance 250 1401 ICD10 Worksheet Patient Problems: Problems Problem Status Onset Ankle fracture, left Acute CAD (coronary artery disease) Acute Cholecystitis Acute Choledocholithiasis Acute Coronary arteriosclerosis in [place] artery Acute Dislocation of ankle, left, closed Acute HTN (hypertension) Acute Hypoxemia Acute Pneumonia Acute
[2018-03-01] MEDS: FLUTICASONE/SALMETER 250/50MCG DISKUS IH SCH ×2 (11:28→21:15)
--- NOTE | 2018-03-01 13:04 | HOSPPROG ---
Hospitalist Progress Note Assessment/Plan: 77yo F s/p lap lorie, path with cholangiocarcinoma. Admitted with bile duct obstruction s/p ERCP and stent. No choledocholithiasis, stenosis appeared malignant. 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 imaging pending Objective: Vital Signs Temp Pulse Resp BP Pulse Ox 36.7 C 73 16 181/62 H 93 03/01/18 11:05 03/01/18 11:05 03/01/18 11:05 03/01/18 11:05 03/01/18 11:05 Laboratory Results 02/28/18 04:25 03/01/18 05:00 02/28/18 03/01/18 03/02/18 05:59 05:59 05:59 Intake Total 850 1401 Output Total 600 Balance 250 1401 - Physical Exam Constitutional: no apparent distress Eyes: PERRL, EOMI Ears, Nose, Mouth, Throat: moist mucous membranes, hearing normal Cardiovascular: regular rate and rhythym, No edema Respiratory: no respiratory distress, no rales or rhonchi, clear to auscultation Gastrointestinal: tenderness, distension (mild distention), No guarding, No rebound Skin: warm Neurologic: AAOx3 Psychiatric: interacting appropriately, not anxious, not encephalopathic Lymph, Heme, Immunologic: No petechiae ICD10 Worksheet Patient Problems: Problems Problem Status Onset Ankle fracture, left Acute CAD (coronary artery disease) Acute Cholecystitis Acute Choledocholithiasis Acute Coronary arteriosclerosis in [place] artery Acute Dislocation of ankle, left, closed Acute HTN (hypertension) Acute Hypoxemia Acute Pneumonia Acute
--- NOTE | 2018-03-01 13:14 | SOAPPROG ---
SOAP Progress Note Assessment/Plan: Assessment: LFT' improved. C/o abdominal pain yesterday and this morning. Feels somewhat better now. Reorts to be hungry. Has not had a BM in a week. Abdominal x-ray normal. LFT's improved. No acute physical signs of significant problems or complications. Suspect constipation. Also patient has a metal stent that is expanding, this may be causing some discomfort as well. Plan: 1. EUS on Tuesday 2. Patient to followup with Dr. Agapito Dobbs for evaluation for surgery next Tuesday 3. Miralax 17 grams daily and MOM as needed 4. Repeat Lipase today and LFT's tomorrow 03/01/18 13:14 Subjective: CC: Biliary obstruction,, abnormal LFT's, GB cancer Had pain yesterday and this am. Abdomen was tender on exam. Has not had a BM in a week. Abdominal x-ray with non-specific bowel gas pattern. Objective: Vital Signs Temp Pulse Resp BP Pulse Ox 36.7 C 73 16 181/62 H 93 03/01/18 11:05 03/01/18 11:05 03/01/18 11:05 03/01/18 11:05 03/01/18 11:05 Laboratory Results 02/28/18 04:25 03/01/18 05:00 02/28/18 03/01/18 03/02/18 05:59 05:59 05:59 Intake Total 850 1401 Output Total 600 Balance 250 1401 Generic Name Dose Route Start Last Admin Trade Name Freq PRN Reason Stop Dose Admin Acetaminophen 650 mg 02/27/18 12:28 02/28/18 08:32 Tylenol PO 08/26/18 12:27 650 mg Q4HRS PRN Administration Pain, Mild/Fever, Can Take PO Atorvastatin Calcium 40 mg 02/27/18 21:00 02/28/18 21:11 Lipitor PO 08/26/18 20:59 40 mg HS AYDEN Administration Bimatoprost 1 drops 02/27/18 21:00 02/28/18 21:12 Lumigan 0.01% EACHEYE 08/26/18 20:59 1 drop HS AYDEN Administration Bisacodyl 10 mg 02/28/18 20:19 03/01/18 07:51 Dulcolax Rectal [place] 08/27/18 20:18 10 mg DAILY PRN Administration Constipation Protocol Sodium Chloride 1,000 mls @ 100 mls/hr 03/01/18 13:15 Ns IV 08/28/18 13:14 CONT AYDEN Levofloxacin 500 mg 03/01/18 10:00 03/01/18 09:26 Levaquin PO 03/31/18 09:59 500 mg DAILY AT 10AM AYDEN Administration Protocol Levothyroxine Sodium 50 mcg 02/28/18 06:00 03/01/18 04:07 Synthroid PO 08/27/18 05:59 50 mcg DAILY06 AYDEN Administration Lisinopril 10 mg 03/01/18 13:15 Zestril PO 08/28/18 13:14 DAILY AYDEN Magnesium Hydroxide 30 ml 02/28/18 20:19 Milk Of Magnesia PO 08/27/18 20:18 DAILY PRN Constipation Protocol Metoprolol Tartrate 12.5 mg 02/27/18 21:00 03/01/18 09:26 Lopressor PO 08/26/18 20:59 12.5 mg BID AYDEN Administration Morphine Sulfate 2 - 4 mg 02/27/18 12:59 03/01/18 11:48 Morphine IVP 03/09/18 12:58 2 mg Q1HR PRN Administration Pain, Severe Multivitamins/Minerals 1 each 02/27/18 18:00 03/01/18 07:51 Preservision Areds2 Formula PO 08/26/18 17:59 1 each BIDMEAL AYDEN Administration Efuid-9-[id number] Ethyl Esters 1,000 mg 02/28/18 09:00 03/01/18 09:26 Fish Oil PO 08/27/18 08:59 1,000 mg DAILY AYDEN Administration Ondansetron HCl 4 mg 02/27/18 12:28 03/01/18 11:48 Zofran IVP 08/26/18 12:27 4 mg Q4HRS PRN Administration Nausea/Vomiting, Can't Take PO Ondansetron HCl 4 mg 02/27/18 12:28 Zofran Odt PO 08/26/18 12:27 Q4HRS PRN Nausea/Vomiting, Use 1st Pantoprazole Sodium 40 mg 02/28/18 15:15 03/01/18 07:51 Protonix PO 08/27/18 15:14 40 mg DAILY AYDEN Administration Polyethylene Glycol 17 gm 03/01/18 13:15 Miralax PO 08/28/18 13:14 DAILY AYDEN Fluticasone/Salmeterol 1 puffs 02/27/18 21:00 03/01/18 11:28 Advair IH 08/26/18 20:59 1 puffs BID AYDEN Administration Senna/Docusate Sodium 1 - 2 tab 02/28/18 21:00 03/01/18 09:26 Senokot-S PO 08/27/18 20:59 1 tab BID AYDEN Administration Protocol Tramadol HCl 50 mg 02/27/18 13:00 03/01/18 07:51 Ultram PO 08/26/18 12:59 50 mg Q6HRS PRN Administration Pain, Moderate Able to Take PO Vitamin B Complex 1,000 mcg 03/01/18 09:00 03/01/18 09:26 Vitamin B12 PO 08/28/18 08:59 1,000 mcg Q2D@09 AYDEN Administration Discontinued Medications Generic Name Dose Route Start Last Admin Trade Name Freq PRN Reason Stop Dose Admin Acetaminophen 500 mg 02/27/18 16:58 Tylenol PO 02/27/18 17:58 Q6HRS PRN PACU, Pain Mild Albuterol 3 ml 02/27/18 16:58 Proventil Neb IH 02/27/18 17:58 Q10M PRN PACU, Wheezing Dexamethasone Confirm 02/27/18 17:11 Decadron Injection Administered 02/27/18 17:12 Dose 4 mg .ROUTE .STK-MED ONE Fentanyl 100 mcg 02/27/18 08:53 02/27/18 08:55 Sublimaze IVP 02/27/18 08:54 100 mcg EDNOW ONE Administration Fentanyl Confirm 02/27/18 08:55 Sublimaze Administered 02/27/18 08:56 Dose 100 mcg .ROUTE .STK-MED ONE Fentanyl 25 - 100 mcg 02/27/18 16:58 Sublimaze IVP 02/27/18 17:58 Q5M PRN PACU, IMMEDIATE Pain control Glucagon Confirm 02/27/18 16:35 Glucagon Administered 02/27/18 16:36 Dose 1 mg .ROUTE .STK-MED ONE Hydromorphone/Sodium Chloride 0.2 - 0.4 mg 02/27/18 12:28 Hydromorphone IVP 03/09/18 12:27 Q4HRS PRN Pain, Severe Unable to Take PO Ampicillin Sodium/Sulbactam 100 mls @ 200 mls/hr 02/27/18 10:39 02/27/18 11: 21 Sodium 3 gm/ Sodium Chloride IV 02/27/18 11:08 100 mls EDNOW ONE Administration Protocol Sodium Chloride 1,000 mls @ 75 mls/hr 02/27/18 12:30 02/27/18 21:18 Ns IV 08/26/18 12:29 1,000 mls CONT AYDEN Administration Piperacillin/Tazobactam/Dextrose 50 mls @ 100 mls/hr 02/27/18 18:30 02/28/18 12:25 Zosyn 3.375 Gm (Premix) IV 03/29/18 18:29 Not Given Q6HRS AYDEN Protocol Iopamidol Confirm 02/27/18 09:27 Isovue-300 Administered 02/27/18 09:28 Dose 100 ml .ROUTE .STK-MED ONE Iopamidol Confirm 02/28/18 08:29 Isovue-300 Administered 02/28/18 08:30 Dose 100 ml .ROUTE .STK-MED ONE Iothalamate Meglumine Confirm 02/27/18 16:36 Conray Administered 02/27/18 16:37 Dose 50 ml IV .STK-MED ONE Labetalol HCl 5 - 10 mg 02/27/18 18:14 02/27/18 19:26 Trandate Injection IVP 02/27/18 19:14 5 mg Q10M PRN Administration PACU, Hypertension Labetalol HCl Confirm 02/27/18 18:24 Trandate Injection Administered 02/27/18 18:25 Dose 100 mg .ROUTE .STK-MED ONE Lactulose 20 gm 02/28/18 20:19 Cephulac PO 08/27/18 20:18 TID PRN Constipation Protocol Lidocaine HCl Confirm 02/27/18 16:55 Xylocaine-Mpf 2% Vial Administered 02/27/18 16:56 Dose 5 ml .ROUTE .STK-MED ONE Miscellaneous Medication 40 mg 02/28/18 09:00 02/28/18 09:53 Omeprazole [Omeprazole] PO 08/27/18 08:59 Not Given DAILY [facility] Morphine Sulfate Confirm 02/27/18 09:28 Morphine Administered 02/27/18 09:29 Dose 4 mg .ROUTE .STK-MED ONE Morphine Sulfate 4 mg 02/27/18 09:30 02/27/18 09:31 Morphine IVP 02/27/18 09:31 4 mg EDNOW ONE Administration Naloxone HCl 0.1 mg 02/27/18 16:58 Narcan IVP 02/27/18 17:58 Q2M PRN PACU Resp Rate <10/min Naloxone HCl 0.1 mg 02/27/18 18:14 Narcan IVP 02/27/18 19:14 Q2M PRN PACU Resp Rate <10/min Ondansetron HCl 2 - 4 mg 02/27/18 16:58 Zofran IVP 02/27/18 17:58 Q10M PRN PACU, Nausea/Vomiting Ondansetron HCl Confirm 02/27/18 17:12 Zofran Administered 02/27/18 17:13 Dose 4 mg .ROUTE .STK-MED ONE Oxycodone HCl 5 - 10 mg 02/27/18 13:00 Oxycodone Ir PO 03/09/18 12:59 Q4HRS PRN Pain, Severe Able to Take PO Polyethylene Glycol 17 gm 02/28/18 20:19 Miralax PO 08/27/18 20:18 DAILY PRN Constipation Protocol Promethazine HCl 25 mg 02/28/18 14:48 02/28/18 14:58 Phenergan IVP 02/28/18 14:49 25 mg ONCE ONE Administration Propofol Confirm 02/27/18 16:55 Diprivan Administered 02/27/18 16:56 Dose 200 mg .ROUTE .STK-MED ONE Rocuronium [place] Confirm 02/27/18 17:11 Zemuron Administered 02/27/18 17:12 Dose 50 mg .ROUTE .STK-MED ONE Physical Exam - Physical Exam General Appearance: alert, no apparent distress Respiratory: lungs clear, normal breath sounds Cardiac/Chest: regular rate, rhythm, systolic murmur Abdomen: soft, other (hypoactive BS) Skin: normal color, warm/dry Neuro/Psych: no motor/sensory deficits, alert, normal mood/affect, oriented x 3 ICD10 Worksheet Patient Problems: Problems Problem Status Onset Ankle fracture, left Acute CAD (coronary artery disease) Acute Cholecystitis Acute Choledocholithiasis Acute Coronary arteriosclerosis in [place] artery Acute Dislocation of ankle, left, closed Acute HTN (hypertension) Acute Hypoxemia Acute Pneumonia Acute
[2018-03-01] MEDS: NS 1,000 ML IV SCH ×2 (13:30→22:40)
--- NOTE | 2018-03-01 14:21 | SOAPPROG ---
SOAP Progress Note Assessment/Plan: A/P: * Gallbladder carcinoma, at least Stage II. * CBD stricture, suspicous for malignant stricture. Brushings pending. LFTs improving after stent. * AP: xray nonspecific. EUS scheduled Tuesday. She has consultation with Dr. Reid Dobbs scheduled for Tues to discuss resectability. No radiographic evidence of metastatic disease. She should see me in the office following her surgical consultation. 03/01/18 14:21 Subjective: S: crampy AP, "gas" O: VS reviewed. Gen: sleepy from pain meds, but arousable and appropriate. Abd: soft, no localized tenderness. Laboratory Tests 02/28/18 02/28/18 02/28/18 04:25 04:25 04:25 WBC 10.16 H Hgb 11.1 L Plt Count 333 Total Bilirubin AST ALT Alkaline Phosphatase Carcinoembryonic Ag 0.74 CA 19-9 Antigen 42 H 03/01/18 05:00 WBC Hgb Plt Count Total Bilirubin 1.4 AST 88 H ALT 197 H Alkaline Phosphatase 582 H Carcinoembryonic Ag CA 19-9 Antigen Objective: Vital Signs Temp Pulse Resp BP Pulse Ox 36.7 C 73 16 181/62 H 93 03/01/18 11:05 03/01/18 11:05 03/01/18 11:05 03/01/18 11:05 03/01/18 11:05 Laboratory Results 02/28/18 04:25 03/01/18 05:00 02/28/18 03/01/18 03/02/18 05:59 05:59 05:59 Intake Total 850 1401 Output Total 600 Balance 250 1401 ICD10 Worksheet Patient Problems: Problems Problem Status Onset Ankle fracture, left Acute CAD (coronary artery disease) Acute Cholecystitis Acute Choledocholithiasis Acute Coronary arteriosclerosis in [place] artery Acute Dislocation of ankle, left, closed Acute HTN (hypertension) Acute Hypoxemia Acute Pneumonia Acute
[2018-03-01] MEDS: POLYETHYLENE GLYCOL 3350 17 GM PKT PO SCH ×2 (15:10→17:33)
[2018-03-01] MEDS: LISINOPRIL 10 MG TAB PO SCH (15:11)
[2018-03-01] MEDS: SIMETHICONE 80 MG TAB CHEW PO SCH ×2 (15:11→21:13)
[2018-03-01] MEDS: ATORVASTATIN CALCIUM 40 MG TAB PO SCH (21:14)
[2018-03-01] MEDS: BIMATOPROST 0.01% 2.5 ML OPHT.BTL EACHEYE SCH (21:15)
[2018-03-02] MEDS: ONDANSETRON 4 MG/2 ML VIAL IVP PRN ×2 (02:34→18:55)
[2018-03-02] MEDS: LEVOTHYROXINE 50 MCG TAB PO SCH (05:04)
[2018-03-02] MEDS: SIMETHICONE 80 MG TAB CHEW PO SCH ×4 (05:04→21:22)
[2018-03-02 05:13] LABS: PLATELET COUNT 305 10^3/uL (150-400)
[2018-03-02] MEDS: PROMETHAZINE HCL 25 MG/ML INJ IVP PRN ×3 (05:32→21:20)
[2018-03-02] MEDS: PANTOPRAZOLE SODIUM 40 MG TAB PO SCH (08:22)
[2018-03-02] MEDS: LISINOPRIL 10 MG TAB PO SCH (08:22)
[2018-03-02] MEDS: SENNOSIDES/DOCUSATE SODIUM TAB PO SCH ×2 (08:22→21:22)
[2018-03-02] MEDS: PRESERVISION AREDS2 FORMULA EYE VIT 1 EACH PO SCH ×2 (08:22→17:48)
[2018-03-02] MEDS: METOPROLOL TARTRATE 25 MG TAB PO SCH ×2 (08:23→21:22)
[2018-03-02] MEDS: POLYETHYLENE GLYCOL 3350 17 GM PKT PO SCH (08:24)
[2018-03-02] MEDS: OMEGA-3 FATTY ACIDS 1,000 MG CAP PO SCH (08:32)
[2018-03-02] MEDS: FLUTICASONE/SALMETER 250/50MCG DISKUS IH SCH ×2 (08:54→20:26)
--- NOTE | 2018-03-02 11:40 | SOAPPROG ---
SOAP Progress Note Assessment/Plan: Assessment: Post ERCP pancreatitis. Seems uncomfortable today. NPO but with BS. Lipase significantly improved. Plan: 1. NPO 2. IV fluids, analgesia 3. Tentative EUS tomorrow. Discussed with Dr. Ruiz, he will evalute in morning to see whether or not to proceed with EUS or postpone. 03/02/18 11:40 Subjective: CC: Biliary Obstruction, abnormal LFTs Patient uncomfortable with abdominal pain. Given Morphine which as helped Objective: Vital Signs Temp Pulse Resp BP Pulse Ox 37.4 C 73 16 195/76 H 95 03/02/18 08:00 03/02/18 08:59 03/02/18 08:59 03/02/18 08:23 03/02/18 08:59 Laboratory Results 03/02/18 04:52 03/02/18 04:52 03/01/18 03/02/18 03/03/18 05:59 05:59 05:59 Intake Total 1401 1646 376 Output Total 550 Balance 1401 1096 376 Generic Name Dose Route Start Last Admin Trade Name Freq PRN Reason Stop Dose Admin Acetaminophen 650 mg 02/27/18 12:28 02/28/18 08:32 Tylenol PO 08/26/18 12:27 650 mg Q4HRS PRN Administration Pain, Mild/Fever, Can Take PO Atorvastatin Calcium 40 mg 02/27/18 21:00 03/01/18 21:14 Lipitor PO 08/26/18 20:59 40 mg HS AYDEN Administration Bimatoprost 1 drops 02/27/18 21:00 03/01/18 21:15 Lumigan 0.01% EACHEYE 08/26/18 20:59 1 drop HS AYDEN Administration Bisacodyl 10 mg 02/28/18 20:19 03/01/18 07:51 Dulcolax Rectal IN 08/27/18 20:18 10 mg DAILY PRN Administration Constipation Protocol Sodium Chloride 1,000 mls @ 100 mls/hr 03/01/18 13:15 03/01/18 22:40 Ns IV 08/28/18 13:14 1,000 mls CONT AYDEN Administration Levofloxacin 500 mg 03/01/18 10:00 03/01/18 09:26 Levaquin PO 03/31/18 09:59 500 mg DAILY AT 10AM AYDEN Administration Protocol Levothyroxine Sodium 50 mcg 02/28/18 06:00 03/02/18 05:04 Synthroid PO 08/27/18 05:59 50 mcg DAILY06 AYDEN Administration Lisinopril 10 mg 03/01/18 13:15 03/02/18 08:22 Zestril PO 08/28/18 13:14 10 mg DAILY AYDEN Administration Magnesium Hydroxide 30 ml 02/28/18 20:19 Milk Of Magnesia PO 08/27/18 20:18 DAILY PRN Constipation Protocol Metoprolol Tartrate 12.5 mg 02/27/18 21:00 03/02/18 08:23 Lopressor PO 08/26/18 20:59 12.5 mg BID AYDEN Administration Morphine Sulfate 2 - 4 mg 02/27/18 12:59 03/02/18 08:17 Morphine IVP 03/09/18 12:58 4 mg Q1HR PRN Administration Pain, Severe Multivitamins/Minerals 1 each 02/27/18 18:00 03/02/18 08:22 Preservision Areds2 Formula PO 08/26/18 17:59 Not Given BIDMEAL AYDEN Earbj-2-Ngxf Ethyl Esters 1,000 mg 02/28/18 09:00 03/02/18 08:32 Fish Oil PO 08/27/18 08:59 Not Given DAILY AYDEN Ondansetron HCl 4 mg 02/27/18 12:28 03/02/18 02:34 Zofran IVP 08/26/18 12:27 4 mg Q4HRS PRN Administration Nausea/Vomiting, Can't Take PO Ondansetron HCl 4 mg 02/27/18 12:28 Zofran Odt PO 08/26/18 12:27 Q4HRS PRN Nausea/Vomiting, Use 1st Pantoprazole Sodium 40 mg 02/28/18 15:15 03/02/18 08:22 Protonix PO 08/27/18 15:14 40 mg DAILY AYDEN Administration Polyethylene Glycol 17 gm 03/01/18 13:15 03/02/18 08:24 Miralax PO 08/28/18 13:14 Not Given DAILY AYDEN Promethazine HCl 6.25 mg 03/02/18 05:16 03/02/18 05:32 Phenergan IVP 08/29/18 05:15 6.25 mg Q6HRS PRN Administration Nausea/Vomiting, Can't Take PO Fluticasone/Salmeterol 1 puffs 02/27/18 21:00 03/02/18 08:54 Advair IH 08/26/18 20:59 1 puffs BID AYDEN Administration Senna/Docusate Sodium 1 - 2 tab 02/28/18 21:00 03/02/18 08:22 Senokot-S PO 08/27/18 20:59 2 tab BID AYDEN Administration Protocol Simethicone 80 mg 03/01/18 16:00 03/02/18 05:04 Mylicon PO 08/28/18 15:59 80 mg QID AYDEN Administration Tramadol HCl 50 mg 02/27/18 13:00 03/01/18 07:51 Ultram PO 08/26/18 12:59 50 mg Q6HRS PRN Administration Pain, Moderate Able to Take PO Vitamin B Complex 1,000 mcg 03/01/18 09:00 03/01/18 09:26 Vitamin B12 PO 08/28/18 08:59 1,000 mcg Q2D@09 AYDEN Administration Discontinued Medications Generic Name Dose Route Start Last Admin Trade Name Freq PRN Reason Stop Dose Admin Acetaminophen 500 mg 02/27/18 16:58 Tylenol PO 02/27/18 17:58 Q6HRS PRN PACU, Pain Mild Albuterol 3 ml 02/27/18 16:58 Proventil Neb IH 02/27/18 17:58 Q10M PRN PACU, Wheezing Dexamethasone Confirm 02/27/18 17:11 Decadron Injection Administered 02/27/18 17:12 Dose 4 mg .ROUTE .STK-MED ONE Fentanyl 100 mcg 02/27/18 08:53 02/27/18 08:55 Sublimaze IVP 02/27/18 08:54 100 mcg EDNOW ONE Administration Fentanyl Confirm 02/27/18 08:55 Sublimaze Administered 02/27/18 08:56 Dose 100 mcg .ROUTE .STK-MED ONE Fentanyl 25 - 100 mcg 02/27/18 16:58 Sublimaze IVP 02/27/18 17:58 Q5M PRN PACU, IMMEDIATE Pain control Glucagon Confirm 02/27/18 16:35 Glucagon Administered 02/27/18 16:36 Dose 1 mg .ROUTE .STK-MED ONE Hydromorphone/Sodium Chloride 0.2 - 0.4 mg 02/27/18 12:28 Hydromorphone IVP 03/09/18 12:27 Q4HRS PRN Pain, Severe Unable to Take PO Ampicillin Sodium/Sulbactam 100 mls @ 200 mls/hr 02/27/18 10:39 02/27/18 11: 21 Sodium 3 gm/ Sodium Chloride IV 02/27/18 11:08 100 mls EDNOW ONE Administration Protocol Sodium Chloride 1,000 mls @ 75 mls/hr 02/27/18 12:30 02/27/18 21:18 Ns IV 08/26/18 12:29 1,000 mls CONT AYDEN Administration Piperacillin/Tazobactam/Dextrose 50 mls @ 100 mls/hr 02/27/18 18:30 02/28/18 12:25 Zosyn 3.375 Gm (Premix) IV 03/29/18 18:29 Not Given Q6HRS AYDEN Protocol Iopamidol Confirm 02/27/18 09:27 Isovue-300 Administered 02/27/18 09:28 Dose 100 ml .ROUTE .STK-MED ONE Iopamidol Confirm 02/28/18 08:29 Isovue-300 Administered 02/28/18 08:30 Dose 100 ml .ROUTE .STK-MED ONE Iothalamate Meglumine Confirm 02/27/18 16:36 Conray Administered 02/27/18 16:37 Dose 50 ml IV .STK-MED ONE Labetalol HCl 5 - 10 mg 02/27/18 18:14 02/27/18 19:26 Trandate Injection IVP 02/27/18 19:14 5 mg Q10M PRN Administration PACU, Hypertension Labetalol HCl Confirm 02/27/18 18:24 Trandate Injection Administered 02/27/18 18:25 Dose 100 mg .ROUTE .STK-MED ONE Lactulose 20 gm 02/28/18 20:19 Cephulac PO 08/27/18 20:18 TID PRN Constipation Protocol Lidocaine HCl Confirm 02/27/18 16:55 Xylocaine-Mpf 2% Vial Administered 02/27/18 16:56 Dose 5 ml .ROUTE .STK-MED ONE Miscellaneous Medication 40 mg 02/28/18 09:00 02/28/18 09:53 Omeprazole [Omeprazole] PO 08/27/18 08:59 Not Given DAILY AYDEN Morphine Sulfate Confirm 02/27/18 09:28 Morphine Administered 02/27/18 09:29 Dose 4 mg .ROUTE .STK-MED ONE Morphine Sulfate 4 mg 02/27/18 09:30 02/27/18 09:31 Morphine IVP 02/27/18 09:31 4 mg EDNOW ONE Administration Naloxone HCl 0.1 mg 02/27/18 16:58 Narcan IVP 02/27/18 17:58 Q2M PRN PACU Resp Rate <10/min Naloxone HCl 0.1 mg 02/27/18 18:14 Narcan IVP 02/27/18 19:14 Q2M PRN PACU Resp Rate <10/min Ondansetron HCl 2 - 4 mg 02/27/18 16:58 Zofran IVP 02/27/18 17:58 Q10M PRN PACU, Nausea/Vomiting Ondansetron HCl Confirm 02/27/18 17:12 Zofran Administered 02/27/18 17:13 Dose 4 mg .ROUTE .STK-MED ONE Oxycodone HCl 5 - 10 mg 02/27/18 13:00 Oxycodone Ir PO 03/09/18 12:59 Q4HRS PRN Pain, Severe Able to Take PO Polyethylene Glycol 17 gm 02/28/18 20:19 Miralax PO 08/27/18 20:18 DAILY PRN Constipation Protocol Promethazine HCl 25 mg 02/28/18 14:48 02/28/18 14:58 Phenergan IVP 02/28/18 14:49 25 mg ONCE ONE Administration Propofol Confirm 02/27/18 16:55 Diprivan Administered 02/27/18 16:56 Dose 200 mg .ROUTE .STK-MED ONE Rocuronium [place] Confirm 02/27/18 17:11 Zemuron Administered 02/27/18 17:12 Dose 50 mg .ROUTE .STK-MED ONE Physical Exam - Physical Exam General Appearance: alert, mild distress Respiratory: lungs clear, normal breath sounds Abdomen: soft, other (positive BS) Skin: normal color, warm/dry Neuro/Psych: no motor/sensory deficits, alert, normal mood/affect ICD10 Worksheet Patient Problems: Problems Problem Status Onset Ankle fracture, left Acute CAD (coronary artery disease) Acute Cholecystitis Acute Choledocholithiasis Acute Coronary arteriosclerosis in [place] artery Acute Dislocation of ankle, left, closed Acute HTN (hypertension) Acute Hypoxemia Acute Pneumonia Acute
--- NOTE | 2018-03-02 11:55 | SOAPPROG ---
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 S/P stenting now with pancreatitis feels better today Maybe EUS tomorrow Supportive treatment S: Feeling a bit better today o: Abdomen soft, some epigastric tenderness Plan: 03/02/18 11:45 03/02/18 13:39 Objective: Vital Signs Temp Pulse Resp BP Pulse Ox 37.4 C 73 16 195/76 H 95 03/02/18 08:00 03/02/18 08:59 03/02/18 08:59 03/02/18 08:23 03/02/18 08:59 Laboratory Results 03/02/18 04:52 03/02/18 04:52 03/01/18 03/02/18 03/03/18 05:59 05:59 05:59 Intake Total 1401 1646 376 Output Total 550 Balance 1401 1096 376 ICD10 Worksheet Patient Problems: Problems Problem Status Onset Ankle fracture, left Acute CAD (coronary artery disease) Acute Cholecystitis Acute Choledocholithiasis Acute Coronary arteriosclerosis in [place] artery Acute Dislocation of ankle, left, closed Acute HTN (hypertension) Acute Hypoxemia Acute Pneumonia Acute
[2018-03-02] MEDS ORDERED: HYDROmorphONE/DILAUDID 1 MG/ML INJ IVP PRN (11:58)
[2018-03-02] MEDS ORDERED: HYDROmorphone HCL/NS 0.5 MG/ML SYR IVP PRN (11:59)
[2018-03-02] MEDS: HYDROmorphone HCL/NS 0.5 MG/ML SYR IVP PRN ×5 (14:22→23:19)
[2018-03-02] MEDS ORDERED: hydrALAZINE 20 MG/ML VIAL IVP PRN (15:31)
[2018-03-02] MEDS ORDERED: hydrALAZINE 20 MG/ML VIAL IVP ONE (15:33)
[2018-03-02] MEDS ORDERED: LISINOPRIL 10 MG TAB PO SCH (15:34)
--- NOTE | 2018-03-02 15:39 | HOSPPROG ---
Hospitalist Progress Note Assessment/Plan: 77yo F s/p lap lorie, path with cholangiocarcinoma. Admitted with bile duct obstruction s/p ERCP and stent. No choledocholithiasis, stenosis appeared malignant. Now with post ERCP pancreatitis as well as HTN Urgency #HTN Urgency -Give Hydralazine 10mg IV x 1 now, cont PRN -increase Lisinopril to 20mg -Cont Metoprolol -No Neurological deficits at this time #Post ERCP pancreatitis -NPO -IVF #Pedal Edema: will decrease IVF to 75ml/hr. volume status may be contributing to increased pressure # cholangiocarcinoma - discovered after cholecystectomy - plan for possible outpatient EUS Tuesday with Dr Ruiz to [facility] evaluate. 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 cont mgmt per above. decrease IVF. Subjective: elevated BP. no neuro deficits, no HERNANDEZ. Still with abd pain. Objective: Vital Signs Temp Pulse Resp BP Pulse Ox 36.2 C 69 16 191/72 H 93 03/02/18 14:15 03/02/18 14:15 03/02/18 14:15 03/02/18 14:15 03/02/18 14:15 Laboratory Results 03/02/18 04:52 03/02/18 04:52 03/01/18 03/02/18 03/03/18 05:59 05:59 05:59 Intake Total 1401 1646 376 Output Total 550 Balance 1401 1096 376 - Physical Exam Constitutional: no apparent distress Eyes: PERRL Ears, Nose, Mouth, Throat: moist mucous membranes, hearing normal Cardiovascular: regular rate and rhythym, edema (trace bilateral lower extremity ) Respiratory: no respiratory distress, no rales or rhonchi Gastrointestinal: tenderness (mostly mid epigastric), No distension Skin: warm Neurologic: AAOx3 Psychiatric: interacting appropriately, not anxious, not encephalopathic Lymph, Heme, Immunologic: No petechiae ICD10 Worksheet Patient Problems: Problems Problem Status Onset Ankle fracture, left Acute CAD (coronary artery disease) Acute Cholecystitis Acute Choledocholithiasis Acute Coronary arteriosclerosis in [place] artery Acute Dislocation of ankle, left, closed Acute HTN (hypertension) Acute Hypoxemia Acute Pneumonia Acute
[2018-03-02] MEDS ORDERED: LISINOPRIL 10 MG TAB PO ONE (15:45)
[2018-03-02] MEDS: BIMATOPROST 0.01% 2.5 ML OPHT.BTL EACHEYE SCH (21:24)
[2018-03-02] MEDS: ATORVASTATIN CALCIUM 40 MG TAB PO SCH (21:30)
[2018-03-03] MEDS: HYDROmorphone HCL/NS 0.5 MG/ML SYR IVP PRN ×5 (01:26→22:56)
[2018-03-03] MEDS: ONDANSETRON 4 MG/2 ML VIAL IVP PRN (01:46)
[2018-03-03] MEDS: NS 1,000 ML IV SCH ×2 (02:53→20:12)
[2018-03-03] MEDS: PROMETHAZINE HCL 25 MG/ML INJ IVP PRN ×3 (03:20→20:12)
[2018-03-03 05:03] LABS: PLATELET COUNT 330 10^3/uL (150-400)
[2018-03-03] MEDS: SIMETHICONE 80 MG TAB CHEW PO SCH ×4 (06:31→23:00)
[2018-03-03] MEDS: LEVOTHYROXINE 50 MCG TAB PO SCH (06:31)
[2018-03-03] MEDS: FLUTICASONE/SALMETER 250/50MCG DISKUS IH SCH ×2 (08:02→20:34)
--- NOTE | 2018-03-03 08:30 | SOAPPROG ---
SOAP Progress Note Assessment/Plan: Assessment: Post ERCP pancreatitis. Clinically improved. Still requiring pain meds but using less and feeling more comfortable. LFT and lipase Improved. Plan for EUS today. Hopefully be able to start diet, clears later today or tomorrow. Plan: EUS today @ 1 pm 03/03/18 08:31 Subjective: CC; biliary obstruction. GB cancer. Biliary stricture, s/p stenting. Post ERCP pancreatitis. Pain much improved. Lipase down significantly. Objective: Vital Signs Temp Pulse Resp BP Pulse Ox 36.4 C 72 14 178/69 H 94 03/03/18 07:39 03/03/18 08:05 03/03/18 08:05 03/03/18 07:39 03/03/18 08:05 Laboratory Results 03/03/18 04:44 03/03/18 04:44 03/02/18 03/03/18 03/04/18 05:59 05:59 05:59 Intake Total 1646 607 Output Total 550 350 Balance 1096 257 Generic Name Dose Route Start Last Admin Trade Name Freq PRN Reason Stop Dose Admin Acetaminophen 650 mg 02/27/18 12:28 02/28/18 08:32 Tylenol PO 08/26/18 12:27 650 mg Q4HRS PRN Administration Pain, Mild/Fever, Can Take PO Atorvastatin Calcium 40 mg 02/27/18 21:00 03/02/18 21:30 Lipitor PO 08/26/18 20:59 40 mg HS AYDEN Administration Bimatoprost 1 drops 02/27/18 21:00 03/02/18 21:24 Lumigan 0.01% EACHEYE 08/26/18 20:59 1 drop HS AYDEN Administration Bisacodyl 10 mg 02/28/18 20:19 03/01/18 07:51 Dulcolax Rectal VA 08/27/18 20:18 10 mg DAILY PRN Administration Constipation Protocol Hydralazine HCl 10 mg 03/02/18 15:31 Apresoline IVP 08/29/18 15:30 Q4HRS PRN Sbp Greater Than 170 Hydromorphone/Sodium Chloride 0.5 mg 03/02/18 14:30 03/03/18 06:30 Hydromorphone IVP 03/12/18 11:58 0.5 mg Q2HRS PRN Administration Pain, Severe Unable to Take PO Sodium Chloride 1,000 mls @ 100 mls/hr 03/01/18 13:15 03/03/18 02:53 Ns IV 08/28/18 13:14 1,000 mls CONT AYDEN Administration Levofloxacin 500 mg 03/01/18 10:00 03/02/18 11:58 Levaquin PO 03/31/18 09:59 500 mg DAILY AT 10AM AYDEN Administration Protocol Levothyroxine Sodium 50 mcg 02/28/18 06:00 03/03/18 06:31 Synthroid PO 08/27/18 05:59 50 mcg DAILY06 AYDEN Administration Lisinopril 20 mg 03/02/18 15:34 Zestril PO 08/28/18 13:14 DAILY AYDEN Magnesium Hydroxide 30 ml 02/28/18 20:19 Milk Of Magnesia PO 08/27/18 20:18 DAILY PRN Constipation Protocol Metoprolol Tartrate 12.5 mg 02/27/18 21:00 03/02/18 21:22 Lopressor PO 08/26/18 20:59 12.5 mg BID AYDEN Administration Multivitamins/Minerals 1 each 02/27/18 18:00 03/02/18 17:48 Preservision Areds2 Formula PO 08/26/18 17:59 1 each BIDMEAL AYDEN Administration [id number] Ethyl Esters 1,000 mg 02/28/18 09:00 03/02/18 08:32 Fish Oil PO 08/27/18 08:59 Not Given DAILY AYDEN Ondansetron HCl 4 mg 02/27/18 12:28 03/03/18 01:46 Zofran IVP 08/26/18 12:27 4 mg Q4HRS PRN Administration Nausea/Vomiting, Can't Take PO Ondansetron HCl 4 mg 02/27/18 12:28 Zofran Odt PO 08/26/18 12:27 Q4HRS PRN Nausea/Vomiting, Use 1st Pantoprazole Sodium 40 mg 02/28/18 15:15 03/02/18 08:22 Protonix PO 08/27/18 15:14 40 mg DAILY AYDEN Administration Polyethylene Glycol 17 gm 03/01/18 13:15 03/02/18 08:24 Miralax PO 08/28/18 13:14 Not Given DAILY AYDEN Promethazine HCl 6.25 mg 03/02/18 05:16 03/03/18 03:20 Phenergan IVP 08/29/18 05:15 6.25 mg Q6HRS PRN Administration Nausea/Vomiting, Can't Take PO Fluticasone/Salmeterol 1 puffs 02/27/18 21:00 03/03/18 08:02 Advair IH 08/26/18 20:59 1 puffs BID AYDEN Administration Senna/Docusate Sodium 1 - 2 tab 02/28/18 21:00 03/02/18 21:22 Senokot-S PO 08/27/18 20:59 1 tab BID AYDEN Administration Protocol Simethicone 80 mg 03/01/18 16:00 03/03/18 06:31 Mylicon PO 08/28/18 15:59 80 mg QID AYDEN Administration Tramadol HCl 50 mg 02/27/18 13:00 03/01/18 07:51 Ultram PO 08/26/18 12:59 50 mg Q6HRS PRN Administration Pain, Moderate Able to Take PO Vitamin B Complex 1,000 mcg 03/01/18 09:00 03/01/18 09:26 Vitamin B12 PO 08/28/18 08:59 1,000 mcg Q2D@09 AYDEN Administration Discontinued Medications Generic Name Dose Route Start Last Admin Trade Name Arturo PRN Reason Stop Dose Admin Acetaminophen 500 mg 02/27/18 16:58 Tylenol PO 02/27/18 17:58 Q6HRS PRN PACU, Pain Mild Albuterol 3 ml 02/27/18 16:58 Proventil Neb IH 02/27/18 17:58 Q10M PRN PACU, Wheezing Dexamethasone Confirm 02/27/18 17:11 Decadron Injection Administered 02/27/18 17:12 Dose 4 mg .ROUTE .STK-MED ONE Fentanyl 100 mcg 02/27/18 08:53 02/27/18 08:55 Sublimaze IVP 02/27/18 08:54 100 mcg EDNOW ONE Administration Fentanyl Confirm 02/27/18 08:55 Sublimaze Administered 02/27/18 08:56 Dose 100 mcg .ROUTE .STK-MED ONE Fentanyl 25 - 100 mcg 02/27/18 16:58 Sublimaze IVP 02/27/18 17:58 Q5M PRN PACU, IMMEDIATE Pain control Glucagon Confirm 02/27/18 16:35 Glucagon Administered 02/27/18 16:36 Dose 1 mg .ROUTE .STK-MED ONE Hydralazine HCl 10 mg 03/02/18 15:33 03/02/18 16:22 Apresoline IVP 03/02/18 15:34 10 mg ONCE ONE Administration Hydromorphone HCl 0.2 mg 03/02/18 11:58 Dilaudid IVP 03/12/18 11:57 Q2HRS PRN Pain, Severe Unable to Take PO Hydromorphone/Sodium Chloride 0.2 - 0.4 mg 02/27/18 12:28 Hydromorphone IVP 03/09/18 12:27 Q4HRS PRN Pain, Severe Unable to Take PO Hydromorphone/Sodium Chloride 0.2 mg 03/02/18 11:59 03/02/18 12:12 Hydromorphone IVP 03/12/18 11:58 0.2 mg Q2HRS PRN Administration Pain, Severe Unable to Take PO Ampicillin Sodium/Sulbactam 100 mls @ 200 mls/hr 02/27/18 10:39 02/27/18 11: 21 Sodium 3 gm/ Sodium Chloride IV 02/27/18 11:08 100 mls EDNOW ONE Administration Protocol Sodium Chloride 1,000 mls @ 75 mls/hr 02/27/18 12:30 02/27/18 21:18 Ns IV 08/26/18 12:29 1,000 mls CONT AYDEN Administration Piperacillin/Tazobactam/Dextrose 50 mls @ 100 mls/hr 02/27/18 18:30 02/28/18 12:25 Zosyn 3.375 Gm (Premix) IV 03/29/18 18:29 Not Given Q6HRS AYDEN Protocol Iopamidol Confirm 02/27/18 09:27 Isovue-300 Administered 02/27/18 09:28 Dose 100 ml .ROUTE .STK-MED ONE Iopamidol Confirm 02/28/18 08:29 Isovue-300 Administered 02/28/18 08:30 Dose 100 ml .ROUTE .STK-MED ONE Iothalamate Meglumine Confirm 02/27/18 16:36 Conray Administered 02/27/18 16:37 Dose 50 ml IV .STK-MED ONE Labetalol HCl 5 - 10 mg 02/27/18 18:14 02/27/18 19:26 Trandate Injection IVP 02/27/18 19:14 5 mg Q10M PRN Administration PACU, Hypertension Labetalol HCl Confirm 02/27/18 18:24 Trandate Injection Administered 02/27/18 18:25 Dose 100 mg .ROUTE .STK-MED ONE Lactulose 20 gm 02/28/18 20:19 Cephulac PO 08/27/18 20:18 TID PRN Constipation Protocol Lidocaine HCl Confirm 02/27/18 16:55 Xylocaine-Mpf 2% Vial Administered 02/27/18 16:56 Dose 5 ml .ROUTE .STK-MED ONE Lisinopril 10 mg 03/01/18 13:15 03/02/18 08:22 Zestril PO 08/28/18 13:14 10 mg DAILY YADEN Administration Lisinopril 10 mg 03/02/18 15:45 03/02/18 16:23 Zestril PO 03/02/18 15:46 10 mg ONCE ONE Administration Miscellaneous Medication 40 mg 02/28/18 09:00 02/28/18 09:53 Omeprazole [Omeprazole] PO 08/27/18 08:59 Not Given DAILY AYDEN Morphine Sulfate Confirm 02/27/18 09:28 Morphine Administered 02/27/18 09:29 Dose 4 mg .ROUTE .STK-MED ONE Morphine Sulfate 4 mg 02/27/18 09:30 02/27/18 09:31 Morphine IVP 02/27/18 09:31 4 mg EDNOW ONE Administration Morphine Sulfate 2 - 4 mg 02/27/18 12:59 03/02/18 08:17 Morphine IVP 03/09/18 12:58 4 mg Q1HR PRN Administration Pain, Severe Naloxone HCl 0.1 mg 02/27/18 16:58 Narcan IVP 02/27/18 17:58 Q2M PRN PACU Resp Rate <10/min Naloxone HCl 0.1 mg 02/27/18 18:14 Narcan IVP 02/27/18 19:14 Q2M PRN PACU Resp Rate <10/min Ondansetron HCl 2 - 4 mg 02/27/18 16:58 Zofran IVP 02/27/18 17:58 Q10M PRN PACU, Nausea/Vomiting Ondansetron HCl Confirm 02/27/18 17:12 Zofran Administered 02/27/18 17:13 Dose 4 mg .ROUTE .STK-MED ONE Oxycodone HCl 5 - 10 mg 02/27/18 13:00 Oxycodone Ir PO 03/09/18 12:59 Q4HRS PRN Pain, Severe Able to Take PO Polyethylene Glycol 17 gm 02/28/18 20:19 Miralax PO 08/27/18 20:18 DAILY PRN Constipation Protocol Promethazine HCl 25 mg 02/28/18 14:48 02/28/18 14:58 Phenergan IVP 02/28/18 14:49 25 mg ONCE ONE Administration Propofol Confirm 02/27/18 16:55 Diprivan Administered 02/27/18 16:56 Dose 200 mg .ROUTE .STK-MED ONE Rocuronium [place] Confirm 02/27/18 17:11 Zemuron Administered 02/27/18 17:12 Dose 50 mg .ROUTE .STK-MED ONE Physical Exam - Physical Exam General Appearance: alert, no apparent distress Respiratory: lungs clear Cardiac/Chest: regular rate, rhythm, systolic murmur Abdomen: soft, other (slight tendness with palpation, postive BS) Skin: normal color, warm/dry Neuro/Psych: alert, normal mood/affect, oriented x 3 ICD10 Worksheet Patient Problems: Problems Problem Status Onset Ankle fracture, left Acute CAD (coronary artery disease) Acute Cholecystitis Acute Choledocholithiasis Acute Coronary arteriosclerosis in [place] artery Acute Dislocation of ankle, left, closed Acute HTN (hypertension) Acute Hypoxemia Acute Pneumonia Acute
[2018-03-03] MEDS: METOPROLOL TARTRATE 25 MG TAB PO SCH ×2 (08:53→23:00)
[2018-03-03] MEDS: SENNOSIDES/DOCUSATE SODIUM TAB PO SCH ×2 (08:53→23:00)
[2018-03-03] MEDS: PANTOPRAZOLE SODIUM 40 MG TAB PO SCH (08:54)
[2018-03-03] MEDS: CYANO/VITAMIN B12 1000 MCG TAB PO SCH (08:56)
[2018-03-03] MEDS: OMEGA-3 FATTY ACIDS 1,000 MG CAP PO SCH (08:56)
[2018-03-03] MEDS: POLYETHYLENE GLYCOL 3350 17 GM PKT PO SCH (08:57)
[2018-03-03] MEDS: PRESERVISION AREDS2 FORMULA EYE VIT 1 EACH PO SCH ×2 (08:57→18:36)
--- NOTE | 2018-03-03 12:04 | SOAPPROG ---
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 S/P stenting now with pancreatitis feels better today Maybe EUS tomorrow Supportive treatment S: Feeling a bit better today O: Abdomen soft, some epigastric tenderness, BS present Plan: 03/02/18 11:45 03/02/18 13:39 03/03/18 11:27 Objective: Vital Signs Temp Pulse Resp BP Pulse Ox 36.4 C 72 14 178/69 H 94 03/03/18 07:39 03/03/18 08:53 03/03/18 08:05 03/03/18 08:54 03/03/18 08:05 Laboratory Results 03/03/18 04:44 03/03/18 04:44 03/02/18 03/03/18 03/04/18 05:59 05:59 05:59 Intake Total 1646 607 Output Total 550 350 Balance 1096 257 ICD10 Worksheet Patient Problems: Problems Problem Status Onset Ankle fracture, left Acute CAD (coronary artery disease) Acute Cholecystitis Acute Choledocholithiasis Acute Coronary arteriosclerosis in [place] artery Acute Dislocation of ankle, left, closed Acute HTN (hypertension) Acute Hypoxemia Acute Pneumonia Acute
[2018-03-03] MEDS ORDERED: LR 1,000 ML IV ONE (13:03)
[2018-03-03] MEDS ORDERED: LISINOPRIL 20 MG TAB PO ONE ×2 (14:15→18:45)
--- NOTE | 2018-03-03 14:19 | HOSPPROG ---
Hospitalist Progress Note Assessment/Plan: 77yo F s/p lap lorie, path with cholangiocarcinoma. Admitted with bile duct obstruction s/p ERCP and stent. No choledocholithiasis, stenosis appeared malignant. Now with post ERCP pancreatitis #HTN Urgency, resolved, still with HTN -Increase Lisinopril again today. 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 abd pain is improving but still present. waiting for EUS today. Objective: Vital Signs Temp Pulse Resp BP Pulse Ox 37.2 C 75 16 184/64 H 96 03/03/18 12:47 03/03/18 12:47 03/03/18 12:47 03/03/18 12:47 03/03/18 12:47 Laboratory Results 03/03/18 04:44 03/03/18 04:44 03/02/18 03/03/18 03/04/18 05:59 05:59 05:59 Intake Total 1646 607 Output Total 550 350 Balance 1096 257 - Physical Exam Constitutional: no apparent distress Eyes: PERRL, EOMI Ears, Nose, Mouth, Throat: moist mucous membranes, hearing normal Cardiovascular: regular rate and rhythym, No edema Respiratory: no respiratory distress, no rales or rhonchi, clear to auscultation Gastrointestinal: normoactive bowel sounds, tenderness (mid epigastric) Skin: warm Neurologic: AAOx3 Psychiatric: interacting appropriately, not anxious, not encephalopathic Lymph, Heme, Immunologic: No petechiae ICD10 Worksheet Patient Problems: Problems Problem Status Onset Ankle fracture, left Acute CAD (coronary artery disease) Acute Cholecystitis Acute Choledocholithiasis Acute Coronary arteriosclerosis in [place] artery Acute Dislocation of ankle, left, closed Acute HTN (hypertension) Acute Hypoxemia Acute Pneumonia Acute
[2018-03-03] MEDS ORDERED: PROPOFOL/EMULSION 500 MG/50 ML BOTTLE IV ONE (14:28)
[2018-03-03] MEDS ORDERED: LIDOCAINE 2% 100 MG/5 ML SYR ONE ×2 (14:29)
[2018-03-03] MEDS ORDERED: fentaNYL 100 MCG/2 ML INJ IVP PRN (14:49)
[2018-03-03] MEDS ORDERED: oxyCODONE IR 5 MG TAB PO PRN (14:49)
[2018-03-03] MEDS ORDERED: ALBUTEROL 3 ML DEYVIAL IH PRN (14:49)
[2018-03-03] MEDS ORDERED: MEPERIDINE 25 MG/0.5 ML AMP IVP PRN (14:49)
[2018-03-03] MEDS ORDERED: ONDANSETRON 4 MG/2 ML VIAL IVP PRN (14:49)
[2018-03-03] MEDS ORDERED: NALOXONE HCL 0.4 MG/ML INJ IVP PRN (14:49)
[2018-03-03] MEDS ORDERED: DEXAMETHASONE 4 MG/ML VIAL IVP PRN (14:49)
[2018-03-03] MEDS ORDERED: ACETAMINOPHEN 500 MG TAB PO PRN (14:49)
[2018-03-03] MEDS ORDERED: PROPOFOL 200 MG/20 ML VIAL ONE (15:09)
[2018-03-03] MEDS ORDERED: hydrALAZINE 20 MG/ML VIAL ONE (15:54)
[2018-03-03] MEDS: hydrALAZINE 20 MG/ML VIAL IVP PRN ×2 (15:57→16:25)
[2018-03-03] MEDS ORDERED: ONDANSETRON 4 MG/2 ML VIAL ONE (16:05)
[2018-03-03] MEDS ORDERED: PROMETHAZINE HCL 25 MG/ML INJ ONE (16:19)
[2018-03-03] MEDS ORDERED: PROMETHAZINE HCL 25 MG/ML INJ IVP ONE (17:00)
[2018-03-03] MEDS ORDERED: ONDANSETRON 4 MG/2 ML VIAL IVP ONE (17:00)
--- NOTE | 2018-03-03 17:16 | GIREPORT ---
[facility] - Endoscopy Department Patient Name: Edita Hathaway Procedure Date: 03/03/2018 2:30 PM Patient Type: Inpatient Attending MD/ ER Physician: Sean Ruiz MD Procedure: Upper EUS Indications: Abnormal abdominal/pelvic CT scan, Epigastric abdominal pain Patient Profile: 77 year old female presents for evaluatin of abnormal imaging/epigastri c abdominal pain. Providers: Sean Ruiz MD Medicines: Monitored Anesthesia Care Complications: No immediate complications. Description of Procedure: After obtaining informed consent, the endoscope was passed under direct vision. Throughout the procedure, the patient's blood pressure, pulse, and oxygen saturations were monitored continuously. The Endosonoscope was introduced through the mouth, and advanced to the second part of duoden um. The Endoscope was introduced through the mouth, and advanced to the sec ond part of duodenum. The upper EUS was accomplished without difficulty. Th e esophagus, stomach, and duodenum were visualized endosongraphically. e patient tolerated the procedure well. Findings: Endoscopic Finding : White nummular lesions were noted in the upper third of the esophagus. Biopsies were taken with a cold forceps for histology. A hiatal hernia was present. Patchy mildly erythematous mucosa was found in the gastric body and in the gastric antrum. Biopsies were taken with a cold forceps for histology. The examined duodenum was normal. Endosonographic Finding : Pancreatic parenchymal abnormalities were noted in the entire pancreas. These consisted of hyperechoic foci. The main pancreatic duct was mildl y dilated. A round mass was identified in the common bile duct. It was located campbell se to the head of the pancreas. Artifact from metal stent in CBD was noted. T he mass was hypoechoic. The mass measured 10 mm by 7 mm in maximal cross-sectional diameter. The endosonographic borders were poorly-defin ed. Fine needle aspiration for cytology was performed. Color Doppler imagin g was utilized prior to needle puncture to confirm a lack of significant vasc ular structures within the needle path. Four passes were made with the 25 ga uge needle using a transduodenal approach. A stylet was used. A camera repairer was present and performed a preliminary cytologic examination. No lymphadenopathy seen. There was a fluid collection noted in the area of the gallbladder fossa . Estimated Blood Loss: Estimated blood loss was minimal. Post Op Diagnosis: - White nummular lesions in esophageal mucosa. Biopsied. - Hiatal hernia. - Erythematous mucosa in the gastric body and antrum. Biopsied. - Normal examined duodenum. - Pancreatic parenchymal abnormalities consisting of hyperechoic foci w ere noted in the entire pancreas. - A mass was identified in the CBD close to the pancreatic head. Fine n eedle aspiration performed. Recommendation: - [facility] patient to [facility]. - Await cytology results and await path results. - Clear liquid diet. - Thank you for allowing me to participate in the care of your patient. Attending Participation: I personally performed the entire procedure. Sean Ruiz MD Sean Ruiz MD 03/03/2018 5:16:22 PM This report has been signed electronicallySean Ruiz MD Number of Addenda: 0 Note Initiated On: 03/03/2018 2:30 PM [email or web address]
[2018-03-03] MEDS: ATORVASTATIN CALCIUM 40 MG TAB PO SCH (22:59)
[2018-03-03] MEDS: BIMATOPROST 0.01% 2.5 ML OPHT.BTL EACHEYE SCH (23:00)
[2018-03-04] MEDS: PROMETHAZINE HCL 25 MG/ML INJ IVP PRN (01:32)
[2018-03-04] MEDS: NS 1,000 ML IV SCH (04:19)
[2018-03-04] MEDS: HYDROmorphone HCL/NS 0.5 MG/ML SYR IVP PRN (04:20)
[2018-03-04] MEDS: SIMETHICONE 80 MG TAB CHEW PO SCH ×4 (04:54→17:14)
[2018-03-04] MEDS: LEVOTHYROXINE 50 MCG TAB PO SCH (04:54)
[2018-03-04 05:15] LABS: PLATELET COUNT 334 10^3/uL (150-400)
[2018-03-04] MEDS: traMADol 50 MG TAB PO PRN ×2 (08:41→17:00)
[2018-03-04] MEDS ORDERED: SIMETHICONE 80 MG TAB CHEW PO ONE (08:45)
[2018-03-04] MEDS ORDERED: LISINOPRIL 40 MG TAB PO SCH (09:00)
[2018-03-04] MEDS: PRESERVISION AREDS2 FORMULA EYE VIT 1 EACH PO SCH (09:03)
[2018-03-04] MEDS: POLYETHYLENE GLYCOL 3350 17 GM PKT PO SCH (09:03)
[2018-03-04] MEDS: OMEGA-3 FATTY ACIDS 1,000 MG CAP PO SCH (09:03)
[2018-03-04] MEDS: SENNOSIDES/DOCUSATE SODIUM TAB PO SCH (09:03)
[2018-03-04] MEDS: METOPROLOL TARTRATE 25 MG TAB PO SCH (09:04)
[2018-03-04] MEDS: PANTOPRAZOLE SODIUM 40 MG TAB PO SCH (09:05)
[2018-03-04] MEDS: FLUTICASONE/SALMETER 250/50MCG DISKUS IH SCH (09:06)
[2018-03-04] MEDS ORDERED: LABETALOL HCL 5 MG/ML 20 ML MDV IVP ONE (09:20)
[2018-03-04] MEDS ORDERED: LABETALOL HCL 5 MG/ML 20 ML MDV IVP PRN (09:20)
[2018-03-04] MEDS ORDERED: amLODIPine BESYLATE 5 MG TAB PO SCH (09:30)
--- NOTE | 2018-03-04 10:56 | SOAPPROG ---
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 S/P stenting now with pancreatitis EUS with mass and several punctate lesions in pancreas No lymph nodes Anemia Monitor H/H Advance diet If improved, can dc home F/U surg onc on Tuesday Plan: 03/02/18 11:45 03/02/18 13:39 03/03/18 11:27 03/04/18 10:55 Objective: Vital Signs Temp Pulse Resp BP Pulse Ox 37.1 C 73 16 179/69 H 97 03/04/18 07:41 03/04/18 10:40 03/04/18 07:41 03/04/18 10:40 03/04/18 07:41 Laboratory Results 03/04/18 04:58 03/04/18 04:58 03/03/18 03/04/18 03/05/18 05:59 05:59 05:59 Intake Total 607 3908 Output Total 350 300 Balance 257 3608 ICD10 Worksheet Patient Problems: Problems Problem Status Onset Ankle fracture, left Acute CAD (coronary artery disease) Acute Cholecystitis Acute Choledocholithiasis Acute Coronary arteriosclerosis in [place] artery Acute Dislocation of ankle, left, closed Acute HTN (hypertension) Acute Hypoxemia Acute Pneumonia Acute
[2018-03-04] MEDS ORDERED: POTASSIUM CL 20 MEQ/15 ML UDCUP PO ONE (10:59)
[2018-03-04] MEDS ORDERED: FUROSEMIDE 20 MG/2 ML VIAL IVP ONE (10:59)
--- NOTE | 2018-03-04 14:27 | PDDCSUM ---
Discharge Summary Discharge Summary: 77yo F s/p lap lorie, path with cholangiocarcinoma. Admitted with bile duct obstruction s/p ERCP and stent. No choledocholithiasis, stenosis appeared malignant. Hospitalization complicated by post ERCP pancreatitis which is now resolved. She is tolerating a regular diet. She had a EUS which showed Esophageal nummular lesions, hiatal hernia, erythematous mucosa of gastric body , and mass at the CBD close to the pancreas head. Biopsies were taken and these will need to be followed. She has f/u this Tuesday with Surg Onc for further mgmt. She was also noted to have HTN Urgency and BP has been difficult to control. One of the reasons may have been the fluids that she was getting due to the pancreatitis and NPO. On exam she has trace LE edema and she was given Lasix 20mg IV today with good response. She reports that her BP as an outpatient runs in the 160's-170's. She will be discharged with Lisinopril 40mg daily. I will hold off on additional diuretics. She is also on Metoprolol. She did receive one dose of Amlodipine on the day of discharge but for now as she will not be monitored I will hold off on prescribing. If BP remains elevated, could consider adding. I offered her to be kept overnight for further BP mgmt and to ensure that she tolerates her diet advancement. However, at this time as she is tolerating a diet and as she has been cleared by Surgery, she wants to be discharged. Aspirin has been held until f/u with PCP and surg onc. #HTN Urgency, resolved, still with HTN #Post ERCP pancreatitis -resolved #Trace Pedal Edema: overall stable. One time diuretic today # cholangiocarcinoma - discovered after cholecystectomy - s/p EUS -no e/o of distant mets --> CT chest negative # common bile duct stricture s/p stent placement - GI recs levaquin 500mg po daily for 10 days through 03/09 # Abd Pain: per above # CAD s/p CABG - cont to hold asa - cont metop/lipitor # brain aneurysm s/p clip - prevents MRI # chronic resp failure - nocturnal O2 # anemia - stable Exam: VSS NAD AAOX3 RRR CTA S/NT/ND TRACE LE EDEMA MEDS: SEE MED REC TOTAL TIME SPENT ON D/C IS 45 MINS. D/W PT, HER FAMILY, NURSE, AND SURGERY
[2018-03-04 15:37] VITALS: BP 172/66
--- NOTE | 2018-03-04 16:11 | SOAPPROG ---
ANGELITO Progress Note Assessment/Plan: Assessment:Plan: 1) GB cancer - f/u with oncology at [facility] and with [facility] as outpt. Will see if we can get path for her appt on Tuesday 2) Pancreatitis - resolving/resolved - tolerating PO w/o sx's, lipase decreased 3) Biliary obstruction - s/p metal stent 4) dispo - prob home today 03/04/18 16:08 Subjective: cc- GB cancer, post ERCp pancreatitis, s/p biliary stent My first time seeing pt doing well with resolved pancreatitis and tolerating PO Objective: Vital Signs Temp Pulse Resp BP Pulse Ox 36.9 C 70 16 172/66 H 94 03/04/18 11:43 03/04/18 15:36 03/04/18 15:36 03/04/18 15:36 03/04/18 15:46 Laboratory Results 03/04/18 04:58 03/04/18 04:58 03/03/18 03/04/18 03/05/18 05:59 05:59 05:59 Intake Total 607 3908 240 Output Total 350 300 Balance 257 3608 240 A+Ox3 CTA S1S2, RRR +Bs, soft nt Laboratory Tests 03/01/18 03/02/18 03/03/18 05:04 04:52 04:44 Lipase 5017 H 924 H 453 H 03/04/18 04:58 Lipase 335 H ICD10 Worksheet Patient Problems: Problems Problem Status Onset Ankle fracture, left Acute CAD (coronary artery disease) Acute Cholecystitis Acute Choledocholithiasis Acute Coronary arteriosclerosis in [place] artery Acute Dislocation of ankle, left, closed Acute HTN (hypertension) Acute Hypoxemia Acute Pneumonia Acute
--- NOTE | 2018-03-04 17:45 | ASMTCMCOM ---
CM Note CM Note Notes: Pt to DC today with no needs. Plan is to have a consult at [facility] in [place] next week. Date Signed: 03/04/2018 05:44 PM Electronically Signed By:Meredith Mccann LCSW
== END 2018-03-04 18:00 | disposition home or self-care (01) | DRG 435 ==
LOC: EDUNIT# → F1N 11:30
PROVIDERS: ADMIT Student in an Organized Health Care Education/Training Program; ATTEND Student in an Organized Health Care Education/Training Program
PROC: 0FB98ZX Excision of Common Bile Duct, Via Natural or Artificial Opening Endoscopic, Diagnostic (ICD-10-PCS; principal; 2018-02-27 17:00)
PROC: 0F798DZ Dilation of Common Bile Duct with Intraluminal Device, Via Natural or Artificial Opening Endoscopic (ICD-10-PCS; principal; 2018-02-27 17:00)
PROC: 0DB68ZX Excision of Stomach, Via Natural or Artificial Opening Endoscopic, Diagnostic (ICD-10-PCS; 2018-03-03)
PROC: 0DB58ZX Excision of Esophagus, Via Natural or Artificial Opening Endoscopic, Diagnostic (ICD-10-PCS; 2018-03-03)
DX: C22.1 Intrahepatic bile duct carcinoma (principal); K83.1 Obstruction of bile duct; K91.89 Other postprocedural complications and disorders of digestive system; K85.90 Acute pancreatitis without necrosis or infection, unspecified; I16.0 Hypertensive urgency; I25.10 Atherosclerotic heart disease of native coronary artery without angina pectoris; J45.909 Unspecified asthma, uncomplicated; J96.10 Chronic respiratory failure, unspecified whether with hypoxia or hypercapnia; E03.9 Hypothyroidism, unspecified; Z95.1 Presence of aortocoronary bypass graft; Z98.1 Arthrodesis status
CPT/HCPCS: 86301-90; 97161-GP; C1874; C2625; G8978-GP-CH; G8979-GP-CH; G8980-GP-CH; J0295; J0360; J1100; J1170; J1610; J1940; J2001; J2270; J2405; J2543; J2550; J2704; J3010; Q9961; Q9967

== ENCOUNTER → 2018-07-04 | Outpatient (CLI) | payer OTHER | LOC: BHFA 14:00 | PROVIDERS: ATTEND Internal Medicine | DX: Z51.11 Encounter for antineoplastic chemotherapy (principal); R09.02 Hypoxemia ==